=== PATIENT | male | born 1965 | race Caucasian/White ===

== ENCOUNTER 2022-08-06 13:36 | Outpatient (OUT) | payer OTHER, SELFPAY ==
--- NOTE | 2022-08-06 16:09 | MISC_ITS ---
PROCEDURE DATE: ??08/06/2022 PROCEDURE:? Bilateral glenohumeral joint injection. PREOPERATIVE DIAGNOSIS:? Bilateral shoulder pain secondary to osteoarthrosis. POSTOPERATIVE DIAGNOSIS:? Bilateral shoulder pain secondary to osteoarthrosis. SOLUTION USED FOR INJECTION:? 2 mL of 2% lidocaine, 2 mL of 0.25% Marcaine and 20 mg of Kenalog, total of 10 mL and 3 mL was used for the injection at each site. IMMEDIATE COMPLICATIONS:? None. PROCEDURE:? After informed consent was obtained from the patient, placed in the supine position.? Skin overlying the area was prepped with alcohol.? A 25 gauge 1 ? inch needle was inserted into the right glenohumeral joint.? After encountering the same, we injected 2 mL of solution.? This was repeated in a similar fashion on the contralateral side.? Throughout the procedure, no indication of intravascular or intraneural needle tip placement or injection.? Patient reports reduction of pain symptoms post procedurally. MELVIN
== END 2022-08-06 13:37 ==
PROVIDERS: PCP Internal Medicine; Visit Provider Anesthesiology Pain Medicine
DX: M19.012 Primary osteoarthritis, left shoulder (principal); M19.011 Primary osteoarthritis, right shoulder
CPT/HCPCS: 20610

== ENCOUNTER 2022-11-05 14:45 | Outpatient (OUT) | payer OTHER, SELFPAY ==
--- NOTE | 2022-11-05 | CONS_ITS ---
CONSULTATION DATE: ??11/05/2022 TO:? Dr. Torres CHIEF COMPLAINT:? Includes bilateral knee pain.? HISTORY:? Patient presented today complaining of 5-7/10 pain in his knees bilaterally.? He reports the pain as being quite sharp, increased with any kind of weight bearing maneuvers.? Kneeling is also quite painful, and transitioning from a kneeling to sitting position is quite uncomfortable.? Denies any change in bowel and bladder habits or new sensorimotor changes in the lower extremities.? He has been using ibuprofen 800 mg daily p.r.n. as well as Celebrex 100 mg daily.? He reports the ibuprofen seems to help him a lot more than the Celebrex.? Other medications include Hemet 5 mg t.i.d.? He reports this does improve his quality of life, level of functioning and sleep pattern.? He denies any side effects.? He does not use one t.i.d. on a regular basis.? He reports at times he uses Hemet daily or even b.i.d.? He does appear to be using Hemet appropriately, without any acceleration.? He reports he has been unresponsive to Zanaflex recently. EXAM:? His examination is notable for patient having no clinical radiculopathy or myelopathy of the bilateral lower extremities.? He has edema of both knee joints.? He has more crepitus of the right knee joint than the left knee joint.? He has surrounding soft tissue tenderness involving the gastrocnemius and hamstring muscles bilaterally.? He had no appreciable J-sign.? He had no signs consistent with ligamental laxity.? He did appear to have point tenderness overlying the lateral meniscus on his right knee.? IMPRESSION:? Our impression is patient appears to have chronic pain secondary to bilateral knee joint pain clinically from osteoporosis.? At this point, he does not want to consider any type of intervention for his knee joints and has decided against proceeding with any kind of imaging study, including x-rays of his knees and even MRIs of his knee joints. RECOMMENDATIONS:? We, therefore, will discontinue his Zanaflex and trial him on baclofen 10 mg pills, half a pill to one pill b.i.d.? I have placed him on ibuprofen 800 mg t.i.d. p.r.n. and to discontinue Celebrex. ?Will see the patient back in the office in three months? time or sooner if needed.? As part of providing excellent, safe, comprehensive care, the following was completed at our patient's visit: 1. A medication reconciliation and review to ensure accurate knowledge of current/active medications, including asking our patients to inform us about any iqjw-fgi-nitkzni medications or herbal remedies/nutritional supplements/alternative remedies. 2. A review to specifically ensure our patients have had annual screening for: elevated body mass index (BMI, see intake chart for exact total), tobacco use, screening for depression, and screening for unhealthy alcohol use.? When screening is concerning, patients are provided with education and the specific recommendation to discuss the concerning health issue and treatment options with their primary care provider. MELVIN
== END 2022-11-05 14:46 | disposition home or self-care (01) ==
PROVIDERS: PCP Internal Medicine; Visit Provider Anesthesiology Pain Medicine
DX: M25.561 Pain in right knee (principal); M25.562 Pain in left knee; G89.29 Other chronic pain; M81.0 Age-related osteoporosis without current pathological fracture
CPT/HCPCS: G0463

== ENCOUNTER 2023-01-30 08:46 | Outpatient (OUT) | payer OTHER, SELFPAY ==
--- NOTE | 2023-01-30 09:29 | P.CN_ITS ---
Consult Note: HPI Data of Consult Patient: known to practice within the last 3 years Requesting Physician: Nancy Horan NP Primary Care Provider: Tevin Torres DO Consult Narrative Reason for consult: f/u Narrative: Trey Hernandez a pleasant 57 year old male presents for evaluation and management of chronic pain. Today pain is in bilateral hips and radiates to groin, pain is 7-8/10. Patient would like to discuss medications and injection therapy. Patient ran out of his norco last and has noticed increase in pain and decrease in functional ability as a result. cc:: CC: Nancy Horan NP Review of Systems ROS Status of ROS 10 or more systems reviewed and unremarkable except as noted in history and below Musculoskeletal Reports: back pain and joint pain [facility] Medical History (Updated 01/30/23 @ 09:30 by Nancy Horan NP) Back pain of thoracolumbar region ?M54.50 - Low back pain, unspecified (ICD-10) ?M54.6 - Pain in thoracic spine (ICD-10) Meds Home Medications and Allergies Home Medications Medication Instructions Recorded Confirmed Type hydrocodone 5 mg-acetaminophen 325 1 tab PO TID PRN pain #90 tabs 11/05/22 Rx mg tablet albuterol 90 mcg/actuation aerosol mcg inhalation 11/07/22 History inhaler amlodipine 5 mg tablet 5 mg PO DAILY 11/07/22 11/07/22 History atorvastatin 20 mg tablet 20 mg PO DAILY 11/07/22 11/07/22 History baclofen 10 mg tablet 10 mg PO TID PRN muscle spasm 11/07/22 11/07/22 History ibuprofen 800 mg tablet 800 mg PO TID-QID PRN pain 11/07/22 11/07/22 History mometasone-formoterol HFA 200 2 puff inhalation BID 11/07/22 11/07/22 History mcg-5 mcg/actuation aerosol inhaler (Dulera) pregabalin 75 mg capsule (Lyrica) 75 mg PO BID 11/07/22 11/07/22 History tamsulosin 0.4 mg capsule 0.4 mg PO DAILY 11/07/22 11/07/22 History pregabalin 75 mg capsule (Lyrica) 75 mg PO BID #180 caps 12/09/22 Rx hydrocodone 5 mg-acetaminophen 325 1 tab PO TID PRN pain #90 tabs 01/22/23 Rx mg tablet Exam Constitutional Documenting provider has reviewed patient's vital signs: yes Common normals: no apparent distress, oriented x3, healthy appearing, alert and well nourished General appearance: cooperative HENMT Common normals: normocephalic, hearing grossly normal bilaterally and moist oral mucous membranes Head and scalp: normocephalic Eye Common normals: PERRL Pupil: PERRL Neck & C-Spine Common normals: full ROM General: normal visual inspection Chest Common normals: inspection of chest normal Respiratory Common normals: normal respiratory effort, no retractions and no use of accessory muscles Back & Pelvis Thoracic spine/upper back: pain with ROM Lumbar spine/lower back: pain with ROM Extremity Right lower extremity: hip joint Left lower extremity: hip joint Other: positive internal and external rotation of bilateral hips pain wraps around to groin bilaterally Neuro Common normals: oriented x3, CN's II-XII intact bilaterally, moves all extremities, no focal motor deficits, no sensory deficits noted and deep tendon reflexes 2+ bilaterally Sensorium/orientation: alert Motor exam: strength 5/5 throughout and no movement abnormalities noted Psych Common normals: mental status grossly normal, thought process normal, cooperative, affect normal, speech normal and activity/motor behavior normal Speech: normal speech Thought process: normal thought process Results Additional Findings Additional findings: I have checked an [place] report on this patient today and there are no aberrancies noted in the prescribing history.?? A drug screen was completed and reviewed within the last year, and if there has not been a drug screen completed we ordered one today to monitor higher risk, state monitored pain medication use. As part of providing excellent, safe, comprehensive care, the following was completed at our patient's visit: 1. A medication reconciliation and review to ensure accurate knowledge of current/active medications, including asking our patients to inform us about any [id number] medications or herbal remedies/nutritional supple ments/alternative remedies. 2. A review to specifically ensure our patients have had annual screening for: elevated body mass index (BMI), tobacco use, screening for depression, and screening for unhealthy alcohol use. When screening is concerning, patients are provided with education and the specific recommendation to discuss the concerning health issue and treatment options with their primary care provider. Assessment and Plan Assessment and Plan (1) Hip osteoarthritis: (2) Chronic pain syndrome: (3) Chronic prescription opiate use: Assessment and Plan: I feel these medications are improving the patient's quality of life and allow them to tolerate activities of daily living as well as participate in recreational activity.? The patient does not report intolerable side effects. The patient is NOT opioid naive and non-pharmacologic and non-opioid treatment has failed to significantly relieve the patient's pain and improve functionality. The patient has a diagnosis that is related to a somatic or visceral pain etiology. ? ?? I reviewed with the patient the potential risks and side effects with the use of? opioid medications including but not limited to respiratory depression,? sedation, and even . I verified the patient has access to naloxone should? these effects occur. I advised the patient to avoid the use of any other? sedation substances including alcohol, THC, and benzodiazepines while? taking opioid medications due to the risk of compounding side effects and? detrimental outcomes. I reviewed the [employer]LECT[employer]CH[employer]ICIAN, pain treatment agreement, urine? drug screen, and opioid start talking forms. The patient was advised to let? their family know they had Naloxone in case they would need to administer? the medication.? ?? A drug screen was completed within the last year, and no aberrancies were noted regarding their use of controlled substances. The patient understands they are subject to the terms and conditions of the pain contract that they have signed. ? ?? I have checked an [place] report on this patient today and there are no aberrancies noted in the prescribing history.? Plan xrays of bialteral hips bilateral intra-artciular hip injections under fluoroscopy with Dr Sawyer continue current medications f/u 2 weeks after injections
== END 2023-01-30 08:47 | disposition home or self-care (01) ==
LOC: PM 08:46
PROVIDERS: PCP Internal Medicine; Visit Provider Nurse Practitioner
DX: M16.9 Osteoarthritis of hip, unspecified (principal); G89.4 Chronic pain syndrome; Z79.891 Long term (current) use of opiate analgesic
CPT/HCPCS: G0463

== ENCOUNTER 2023-05-07 07:49 | Outpatient (OUT) | payer OTHER, SELFPAY ==
--- OUTSIDE RECORDS SUMMARY | 2023-05-07 07:52 | XMS_ITS | CCD ---
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 Start: 04-01-2023 Alcohol intake [facility] (finding) [facility] Start: 04-20-2020 End: 05-22-2020 History of Social function [facility] How often to you hav e a drink containing alcohol? Never [facility] Average Number of Drinks [facility] Start: 1965 Sex Assigned At Not on file [facility] Medical Equipment Procedure Code Equipment Code Equipment Origin al Text Equipment Identifier Dates Implant Bio Tiss Med Bvn At Dlv Dev Bioinductive Impl - Sna - [id number] Start: 02-14-2021 [place] [employer] As cp Dlv - Sna - [id number] Start: 02-14-2021 Clinical Notes 05-16-2021 to 02-14-2023 Note Date & Type Note Facility 02-14-2023 Evaluation note Encounter Date Diagnosis Assessment Notes Jan, Hyperprolactinemia (ICD-10 - E22.1) [facility] Other 11-01-2023 Evaluation note* Encounter Date Diagnosis Assessment Notes Treatment Notes Treatment Clinical Notes Jan, Primary hypertension (ICD-10 - I10) This patient is instructed to consume a healthy, low-fat, low-salt diet. They are also encouraged to continue exercise to achieve/maintain a normal BMI. Jan, Wellness examination (ICD-10 - Z00.00) Healthy diet and exercise. Reviewed age-appropriate preventive testing recommended. Jan, Mild intermittent asthma without complication (ICD-10 - J45.20) Symptoms controlled, no ER visits for AE Jan, Elevated cholesterol (ICD-10 - E78.00) Instructed on diet and exercise with continued statin therapy.Discussed the beneficial effects of lowering cholesterol in reducing the risk for cerebrovascular and cardiovascular disease. Jan, Gastroesophageal reflux disease with esophagitis without hemorrhage (ICD-10 - K21.00) Diet instructions: Smaller portions, avoid eating and laying flat, avoid eating or drinking prior to bedtime. Weight loss. Jan, ANGELA (generalized anxiety disorder) (ICD-10 - F41.1) Symptoms tolerable Remains very active. Encourage to continue healthy diet and exercise No change in medical therapy Jan, PHIL (obstructive sleep apnea) (ICD-10 - G47.33) This patient is aware of the benefits associated with PHIL: With continued use, the patient reduces the risk for VA, CVA, HTN, cardiac dysrhythmias and sudden cardiac deaths.The patient is also aware of the association between PHIL and morning headaches, daytime somnolence, fatigue and obesity Noncompliant Jan, Lumbar spondylosis (ICD-10 - M47.816) The patient is instructed to avoid bending, twisting or lifting. They are to use intermittent heat and ice as needed. They may schedule a massage or gentle manipulation. They may safely use Tylenol as needed. \ f/u pain clinic Jan, Overweight (ICD-10 - E66.3) This patient has been instructed on a low-fat, high-fiber diet. They are instructed to reduce calories, portion sizes and snacks. It is recommended that they exercise for 30 minutes, 3-5 times weekly. Jan, Prolactinoma (ICD-10 - D35.2) Denies headaches or visual field loss. Check Prolactin level Jan, Screening PSA (prostate specific antigen) (ICD-10 - Z12.5) Yearly RENAN and PSA [facility] Other 05-11-2023 NotePROCEDURE: XR SHOULDER RT 2V or > HISTORY: Pain of right shoulder region COMPARISON: None. FINDINGS: BONES:No fracture, acute abnormality, or significant arthropathy. SOFT TISSUES:No visible soft tissue swelling. EFFUSION:None visible. OTHER: Negative. IMPRESSION: 1. No acute bone abnormality or significant degenerative joint disease. 2. Consider MRI for evaluation of possible soft tissue injury if symptoms persist. Electronically authenticated by: LIBBY ARMENTA Date: 2022-07-11 10:26[facility]04-27-2023 Evaluation note* Encounter Date Diagnosis Assessment Notes Treatment Notes Treatment Clinical Notes Jun, Primary hypertension (ICD-10 - I10) This patient is instructed to consume a healthy, low-fat, low-salt diet. They are also encouraged to continue exercise to achieve/maintain a normal BMI. Jun, Mild intermittent asthma without complication (ICD-10 - J45.20) Keep active. Initiate treatment towards environmental allergens. - start Nina and Flonase Continue SHILOH as needed. Jun, Seasonal allergic rhinitis due to pollen (ICD-10 - J30.1) Kenalog, Nina and Flonase to lessen symptoms related to environmental allergens Jun, Pleurodynia (ICD-10 - R07.81) REassure, since his symptoms are more typical of chest wall, pleurisy rather than angina. Reviewed typical symptoms of angina/CHF and instructed to seek evaluation if symptoms develop. d/c Motrin and start Celebrex Jun, Benign prostatic hyperplasia with lower urinary tract symptoms (ICD-10 - N40.1) Continue Flomax for now. Instructed to move dose to later in the daytime. Avoid fluids and Caffiene late in daytime. Jun, Nocturia (ICD-10 - R35.1) Jun, Lumbar spondylosis (ICD-10 - M47.816) The patient is instructed to avoid bending, twisting or lifting. They are to use intermittent heat and ice as needed. They may schedule a massage or gentle manipulation. They may safely use Tylenol as needed. F/U pain clinic Trial of Celebrex Jun, Allergic dermatitis due to poison jackie (ICD-10 - L23.7) Topical steroids, cool compresses should suffice Jun, Overweight (BMI 25.0-29.9) (ICD-10 - E66.3) I have instructed this patient to follow a low calorie, high fiber diet along with exercise. They are aware of the comorbid conditions associated with excessive weight: Diabetes, HTN, Hyperlipidemia, CAD and arthritis. [facility] Other 04-17-2023 Evaluation note* Encounter Date Diagnosis Assessment Notes Treatment Notes Treatment Clinical Notes Jun, Allergic contact dermatitis due to plants, except food (ICD-10 - L23.7) Cool compresses, Nina, Benadryl and Prednisone. Avoid scratching [facility] Other 04-03-2023 Evaluation note* Encounter Date Diagnosis Assessment Notes Treatment Notes Treatment Clinical Notes Jun, Acute bronchitis due to other specified organisms (ICD-10 - J20.8) Instructed to use Robitussin or Mucinex for cough, saline or Flonase NS for congestion, Tylenol for pain and fever. Jun, Primary hypertension (ICD-10 - I10) Avoid decongestants w/ due to elevate BP [facility] Other 03-28-2023 NoteCONSULTATION PROCEDURE DATE: 05/28/2022 IN OFFICE PROCEDURE PROCEDURE: Left glenohumeral joint injection. PREOPERATIVE DIAGNOSIS: Pain secondary to left shoulder joint pain. POSTOPERATIVE DIAGNOSIS: Pain secondary to left shoulder joint pain. DIAGNOSIS CODE: M25.512 SOLUTION USED FOR INJECTION: 2 mL of 2% lidocaine, 2 mL of 0.25% Marcaine, Kenalog 40 mg, total of 3 mL and 1 mL was use for the injection at the sites. IMMEDIATE COMPLICATION: None. PROCEDURE: After informed consent was obtained from the patient, placed in the sitting position. Skin overlying the area was prepped with alcohol. A 25 gauge, 1.5 inch needle was inserted and directed towards the left glenohumeral joint from a posterolateral approach. No indication of intravascular or intraneural needle tip placement. 1 mL of solution was injected. Post-op it was removed. Patient reports dramatic reduction in left shoulder pain with increased range of motion compared to pre-injection status. Scheduled to return to the office in one month's time or sooner if needed. CC: Tevin Torres D.O.[facility]03-16-2023 NoteCONSULTATION CONSULTATION DATE: 05/16/2022 HISTORY: This is a 56-year-old gentleman who returns to the clinic for a three month follow up for his chronic lower back pain. He was last seen 02/28/2022 which, at that time, his back pain was maintaining, no worse, but he had left shoulder pain. He did have pending left shoulder surgery, but that has been cancelled due to cost and lack of efficient insurance coverage. Medications include Lyrica 75 mg b.i.d., Lyford 5/325 b.i.d. and Zanaflex 4 mg b.i.d. He does take ibuprofen as needed. He is inquiring about a left shoulder injection today to help with the pain. In regards to his back, last procedure was done approximately one year, which was a repeat bilateral RFA of L2, L3 and L4 with good result. Activities that aggravate his pain are housework, lifting, prolonged standing, walking and pulling. He does use heat and does stretches, which do improve his pain. Patient's REVIEW OF SYSTEMS / PAST MEDICAL HISTORY / ALLERGIES and IMAGES have been reviewed and noted on the chart. PHYSICAL EXAM: VITAL SIGNS: Blood pressure is 147/93. Heart rate is 69. Temperature is 98.2. He is 5'11 , weighs 88 kg. GENERAL IMPRESSION: Pleasant, appropriate, in no acute distress. FOCUSED EXAM - BACK: Range of motion is functional in lateral rotation and flexion/extension. Paravertebral muscles are non-spasmodic. Mild spinal axial pain noted to deep compression along the L4-L5 facets, left greater than right. No radiating pain below the knee. MUSCULOSKELETAL: Motor is intact, bilateral lower extremities, 5/5. Left upper extremity motor is 4/5 with decreased range of motion to his left shoulder. Decreased lateral raises with decreased adduction but intact abduction. Crepitus palpated and point tenderness along the glenohumeral joint. NEUROLOGICAL: Patchy hypoesthesia noted to bilateral lower extremities and the left arm. DIAGNOSIS: Chronic pain syndrome, chronic lower back pain and left shoulder pain. PLAN: We will increase his Lyford and refill it at 5/325 t.i.d. and Lyrica 75 mg b.i.d. We will preauthorize with his insurance for a left shoulder Kenalog and Marcaine glenohumeral joint injection. Upon authorization, he will be brought back to the clinic, at that time. Patient agrees with this plan.[facility] [id number] NoteCONSULTATION CONSULTATION DATE: 02/28/2022 HISTORY OF PRESENT ILLNESS: This is a 56-year-old gentleman who returns to the clinic for a three month follow up for his chronic neck, shoulder and back pain. Primary area of pain today is his left shoulder. He has been under the care of Dr. Murphy who has reduced the bone spurs in his left shoulder. Since that time, he fell and landed on his shoulder, resulting in multiple tears throughout his shoulder. He is under discussion with Dr. Murphy at this time for a shoulder repair, but due to finances, it is on hold. He has just slight lower back and neck pain today, but he states it is manageable. He rates his pain 6/10 today, primarily in his shoulder. It is aggravated by lifting, raising arms, pushing, pulling, standing and walking. He does use heat and ice which are beneficial. Medications include Lyford 5/325 b.i.d., Zanaflex 4 mg b.i.d., Lyrica 75 mg b.i.d. and CBD gummies. Patient's REVIEW OF SYSTEMS / PAST MEDICAL HISTORY / ALLERGIES and IMAGES have been reviewed and noted in the chart. PHYSICAL EXAM: VITAL SIGNS: Blood pressure is 120/77. Heart rate is 65. Temperature is 97.5. He is 5'11 , weighs 85 kg. GENERAL IMPRESSION: Pleasant, appropriate, in no acute distress. FOCUSED EXAM - MUSCULOSKELETAL: Bilateral upper extremities motor is intact; right side 5/5, left 4/5. Left shoulder has decreased range of motion in lateral raises, adduction and abduction. Anterior/posterior tenderness upon compression, specifically to the glenohumeral joint. No crepitus or edema noted. BACK: Range of motion is functional in lateral rotation and flexion/extension. Mild reproduction of spinal axial pain upon the lower lumbar facets of L4-L5 bilaterally. Fabrice's point is non-tender with negative FABERs and compression test. NEUROLOGICAL: Patchy hypoesthesia noted to left arm and to left leg diffusely. Reflexes are intact; 2/2 to brachioradialis and to left patella. DIAGNOSIS: Chronic lower back pain, left shoulder pain. PLAN: The patient is considering having a consult with the [employer] [facility] regarding his shoulder surgery. We will refill and maintain his Lyford 5/325 b.i.d. He will Zanaflex and Lyrica at the set dose and frequency. We will continue to see him in three months' time for medication management, and patient is in agreement.[facility] [id number] NoteCONSULTATION CONSULTATION DATE: 11/21/2021 HISTORY OF PRESENT ILLNESS: This is a 56-year-old gentleman returning to the clinic for a follow up of his right sided cervical RFA that was completed in August. The patient had the procedure done prior to leaving for a two [place] trip [place]. Today, he reports his pain a 4/10 at rest, increases to 7/10 with activity. He describes it as zapping, sharp and burning to the right side only. Range of motion has improved in lateral rotation and flexion/extension. He is feels as though his muscles are not as tight, but he has two areas that are more bothersome. Current medications include Zanaflex 4 mg b.i.d., Lyrica 75 mg b.i.d., Lyford 5/325 b.i.d. and ibuprofen 800 mg b.i.d. Activities such as neck rotation, lifting and physical activity aggravate his pain. Sitting and stretching decrease his pain. Patient's REVIEW OF SYSTEMS / PAST MEDICAL HISTORY / ALLERGIES and IMAGES have been reviewed and they are noted on the chart. PHYSICAL EXAM: VITAL SIGNS: Blood pressure is 133/84. Heart rate is 57. Temperature is 97.5. He is 5'11 , weighs 84.6 kg. GENERAL IMPRESSION: Pleasant, appropriate, no acute distress. FOCUSED EXAM - NECK: Range of motion is intact and functional in lateral rotation and flexion/extension. Trachea is midline. Splenius capitis muscles are non-spasmodic. Trapezius muscles with trigger points identified to the right in two locations. Positive jump response. No spinal axial pain to compression indicative of successful RFA. MUSCULOSKELETAL: Motor is intact upper and lower extremities 5/5. No vasomotor weakness noted. NEUROLOGICAL: Patchy hypoesthesia to right upper extremity along the C6 and C7 dermatome. +1 brachioradialis and triceps reflexes to the right. DIAGNOSIS: Cervical spasms, cervical neuritis, cervical spondylosis. PLAN: Patient will receive right sided cervical trigger point injections in two locations, which he does consent to. He is to continue current medication with no changes in dose or frequency. A refill for his Zanaflex 4 mg b.i.d. and Motrin 800 mg b.i.d. will be sent to his pharmacy. I did recommend home cervical traction to be used on his neck. We will see him in three months' time unless otherwise indicated. Patient agrees with this plan.[facility] [id number] NoteCONSULTATION PROCEDURE DATE: 11/21/2021 PREOPERATIVE DIAGNOSIS: Right cervical trapezius spasms. POSTOPERATIVE DIAGNOSIS: Right cervical trapezius spasms. PROCEDURE: Right cervical trigger point injections x2. Subsequent to obtaining informed consent, the patient was placed in an upright sitting neck neutral position. Alcohol prep was used to sterilize the site. A 27 gauge needle with 0.125% Marcaine and 40 mg of Kenalog was used in the two locations. The needle was placed to rest inside the trigger zone. Negative heme. Medication was injected in a slow, fan-like pattern. Patient tolerated the procedure well with no overt complications.[facility] [id number] NoteCONSULTATION CONSULTATION DATE: 08/16/2021 HISTORY OF PRESENT ILLNESS: This is a 55-year-old gentleman, returning to the clinic status post right sided RFA of C3, C4 and C5, C6 completed on 07/10/2021. The patient stated shortly after the procedure he experienced increased burning and allodynia and, therefore, wanted to hold off on the left side. Today, he is reporting approximately 60-70% relief and patient understands he is still in the recovery phase. He is leaving in one week for [place] for a two month time period. Upon patient's return, he will decide if he would like to proceed with the left side RFA. His pain level is 2/10 today and describes it as dull. He has been using Biofreeze and Voltaren gel which seem helpful as well. Current medications include Zanaflex 4 mg b.i.d., Lyrica 75 mg b.i.d. and Lyford 5/325 b.i.d. Activities that aggravate his pain are lifting, flexion of his neck, ADLs, changes in the weather and lateral rotation. Patient's REVIEW OF SYSTEMS / PAST MEDICAL HISTORY / ALLERGIES and IMAGES have been reviewed and noted in the chart. PHYSICAL EXAM: VITAL SIGNS: Blood pressure is 142/94. Heart rate is 66. Temperature is 97.8. He is 5'11 , weighs 85.5 kg. GENERAL APPEARANCE: Pleasant, appropriate, in no acute distress. FOCUSED EXAM - NECK: Range of motion is functional but slightly guarded to the left during lateral rotation. Flexion and extension are intact. Cervical muscles are non-spasmodic with no trigger points identified. Mild reproduction of spinal axial pain to direct compression of the cervical facets of C3, C4 and C5, C6 to the left. MUSCULOSKELETAL: Bilateral upper extremities are intact, 4/5. NEUROLOGICAL: +2 bilateral brachioradialis reflexes. No upper extremity polyneuropathy. Patchy hypoesthesia noted to left lower extremity along the L5 dermatome. IMPRESSION: Cervical spondylosis, cervical degenerative disc, cervicalgia and lumbar radiculitis. PLAN: Due to the fact the patient is leaving for [place] for a two month period, his Lyford for a 30 day supply will be increased to 5/325 q.i.d. to keep the same dose and frequency while he is out of the country. Education was given on continuing stretches and Biofreeze regimen. He was encouraged to start magnesium glycinate 400 mg q.h.s. in addition to his multivitamin. Patient agrees with the plan of care and will follow up in the clinic in three months' time. [facility] Signed and Approved by: ADRIANE ROUSSEAU . 08/29/2021 16:23:00[facility]03-16-2022 NoteChief Complaint consultation for foreign body HPI Staff 55 year old male presents on consultation from Dr. Torres for foreign body left index finger. Reportshe received wood splinter on 05/12. Pain, erythema and edema started day afterwards. Prescribed Amoxil 875mg BID x 7 days yesterday. Today erythema and edema have resolved. Continues with mild tenderness. History of Present Illness 55 yo male s/p splinter to left index finger, happened 4 days ago, small piece broke off, rest still in finger, intermittent pain and drainage, on antibiotics since yesterday. Review of Systems PHQ Score Initial Depression Screen Score: 0 ROS - Provider Constitutional: no fever, no sweats, no weight loss. Eyes: no glasses, no blurred vision, no visual loss. ENMT: no dentures, no hoarseness, no swallowing difficulties, no hearing loss, no ear infection(s),no nose bleeds. Cardiovascular: normal blood pressure, no chest pain, regular heartbeat, no heart murmur. Respiratory: no shortness of breath, no cough, no asthma, no wheezing. Gastrointestinal: no nausea, no vomiting, no diarrhea, no constipation, no blood in stool, no change in bowel habits, no abdominal pain, no hepatitis. Genitourinary: no kidney stones, no urine infection, no dysuria. Musculoskeletal: no pain, no weakness. Skin: no changing moles, no rash, no skin lumps. Neurologic: no seizures, no epilepsy, no headache. Psychiatric: no emotional or psychiatric problem. Heme/Lymph: no bleeding problems, no anemia, no blood clots, no transfusions. Allergy/Immunologic: no swollen lymph nodes/glands, no IV drug abuse. Other: Additional ROS info: Except as noted in the above Review of Systems and in the History of Present Illness, all other systems have been reviewed and are negative or noncontributory. Physical Exam Vitals & Measurements T: 36.6 ?C(Temporal Artery) HR: 72(Peripheral) RR: 16 BP: 126/78 HT: 182.9 cm HT: 182.88 cm WT: 89.1 kg WT: 89.1 kg BMI: 26.64 skin: left index finger with minimal induration distally, 3 mm open area medially, minimal drainage; no visible foreign body. Assessment/Plan 1. Foreign body of finger, left, superficial, infected (S60.459A: Superficial foreign body of unspecified finger, initial encounter) splinter removed under local anesthesia after prepping finger; tolerated well, ebl < 1 ml; soak finger in soapy water bid until scabs over; complete course of antibiotics, call with problems/questions. Local infection of the skin and subcutaneous tissue, unspecified (L08.9: Local infection of the skin and subcutaneous tissue, unspecified) Follow-up No qualifying data available Problem List/Past Medical History Ongoing Asthma BMI 26.0-26.9,adult BPH associated with nocturia Foreign body of finger, left, superficial, infected ANGELA (generalized anxiety disorder) HTN (hypertension) Hyperlipidemia Irritable bowel syndrome with alternating bowel habits Lumbar spondylosis Major depressive disorder PHIL (obstructive sleep apnea) Pituitary microadenoma Historical No qualifying data Procedure/Surgical History Arthroscopy of shoulder (02/14/2021), Colonoscopy (2017), EGD - Esophagogastroduodenoscopy (2006), Cholecystectomy, History of hip surgery, Lumbar spinal fusion, Partial substernal thyroidectomy. Medications albuterol HFA 90 mcg/inh MDI, 2 puff(s), Inhalation, q4hr, PRN alprazolam 0.25 mg Tab, 0.25 mg= 1 tab(s), Oral, q8hr, PRN amLODIPine 10 mg Tab, 10 mg= 1 tab(s), Oral, Daily atorvastatin 80 mg Tab, 80 mg= 1 tab(s), Oral, Daily cabergoline 0.5 mg Tab, 0.5 mg= 1 tab(s), Oral, 2x/Wk Flomax 0.4 mg Cap, 0.4 mg= 1 cap(s), Oral, Daily Lyrica 75 mg Cap, 75 mg= 1 cap(s), Oral, BID Lyford 5/325 Tab, 1 tab(s), Oral, BID Singulair 10 mg Tab, 10 mg= 1 tab(s), Oral, Daily Allergies No Known Allergies No Known Medication Allergies Social History Alcohol - Denies Alcohol Use, 05/16/2021 Substance Abuse - Denies Substance Abuse, 05/16/2021 Tobacco Never (less than 100 in lifetime) Tobacco Use:. Never Smokeless Tobacco Use:., 05/16/2021 Family History Brain tumor: Brother. Diabetes mellitus type 2: Father. Stroke: Father. Immunizations Vaccine Date Status Comments influenza virus vaccine, inactivated - Not Given [facility]usesSam[facility] CenterComment on above:Result Comment: Electronically Signed By: Luis Miguel AZEVEDO MD\Date and Time Signed: 05/16/21 17:23 EDTHistory general Narrative - Reported* Type Description Date Medical History chronic JENKINS Medical History lumbar spondylosis Medical History BPH Medical History hypertension Medical History hyperlipedemia Medical History diverticulosis Medical History depression Medical History anxiety Medical History PHIL Medical History benign thyroid tumor Medical History pituitary prolactinoma Surgical History cholecystecomy Surgical History EGD Surgical History colonoscopy Surgical History right thyroidectomy Surgical History rt shoulder rotator cuff 4 Surgical History RFA Hospitalization History CHEST PAIN 2010 [facility] Other InstructionsNot on filedocumented in this encounter [facility] Summary Purpose Family History No Family History Records FoundNo Family History Records FoundNo Family History Records FoundNo Family History Records FoundNo Family History Records Found Advance Directives No Advanced Directives Records FoundNo Advanced Directives Records FoundNo Advanced Directives Records FoundNo Advanced Directives Records FoundNo Advanced Directives Records Found Additional Source Comments (unrecognized sect ion and content) No Status Records FoundNo Status Records FoundNo Status Records FoundNo Status Records FoundNo Status Records Found INFORMATION SOURCE (unrecogn ized section and content) DATE CREATED AUTHOR 08/26/2017 [facility] DATE CREATED AUTHOR AUTHOR'S ORGANIZ ATION 08/26/2017 [facility] DATE CREATED AUTHOR AUTHOR'S ORGANIZ ATION 05/17/2021 [facility] [facility] DATE CREATED AUTHOR AUTHOR'S ORGANIZ ATION 07/13/2022 [facility] DATE CREATED AUTHOR AUTHOR'S ORGANIZ ATION 04/06/2023 [facility] REASON FOR VISIT (unrecogniz ed section and content) Reason Comments Med Refill Care Teams (unrecognized sec tion and content) Operating Room Aide Relationship Specialty Start Date End Date Tevin Torres DO [address] [place] [address] PCP - General Internal Medicine 05/09/20 FOR RECORDS PERTAINING TO PATIENTS WHO ARE OR HAVE BEEN ENROLLED IN A CHEMICAL DEPENDENCY/SUBSTANCEABUSE PROGRAM, SOME INFORMATION MAY BE OMITTED. This clinical summary was aggregated from multiple sources. Caution should be exercised in using it in the provision of clinical care. This summary normalizes information from multiple sources, and as a consequence, information in this document may materially change the coding, format and clinical context of patient data. In addition, data may be omitted in some cases. CLINICAL DECISIONS SHOULD BE BASED ON THE PRIMARY CLINICAL RECORDS. [facility]. provides no warranty or guarantee of the accuracy or completeness of information in this document.
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
== END 2023-05-07 07:50 | disposition home or self-care (01) ==
PROVIDERS: PCP Internal Medicine; Visit Provider Nurse Practitioner
DX: M16.9 Osteoarthritis of hip, unspecified (principal); G89.4 Chronic pain syndrome; Z79.891 Long term (current) use of opiate analgesic; M47.812 Spondylosis without myelopathy or radiculopathy, cervical region; M79.18 Myalgia, other site
CPT/HCPCS: G0463

== ENCOUNTER 2023-05-19 12:04 | Outpatient (REF) | payer OTHER, SELFPAY ==
--- OUTSIDE RECORDS SUMMARY | 2023-05-19 12:19 | XMS_ITS | CCD ---
Author Name Unknown Address [address] [place] [address] Organization [facility] Care Team Providers Care Reel Cart Operator Name Role Phone Harjit Aldrich Unavailable Unavailable [...] [employer] Unavailable ROB ., DR CODY Ricketts [...] Facility (5 sources) Morphine Drug Allergy vomiting [facility] Other Medications Current Medications Medication Drug Class(es) [...] needed Orally every 6 hrs PRN Active [id number] 200 actuat albuterol 0.09 mg/actuat metered dose [...] 1 02/04/2022 Active take 1 capsule by [facility] every twenty-four hours Tamsulosin HCl 0.4 MG [...] Chema Obrien on 04/01/2023 1:46 PM Normal [facility] Ambulatory Visit Summaryon 0 05-16-2021 Ambulatory Visit Summary TREY HERNANDEZ :1965 Visit Date:05/16/2021 Ambulatory Visit Instructions Your Care Team Attending Physician - Luis Miguel AZEVEDO MD Primary Care Physician - TEVIN TORRES DO Referring Physician - TEVIN TORRES DO This Is Your Medications List acetaminophen-hydrocodone (Markesan 5/325 Tab) albuterol (albuterol HFA 90 mcg/inh [...] What How Much When Instructions Unchanged acetaminophen-hydrocodone (Markesan 5/ 325 Tab) 1 Tablets By Mouth [...] PHIL (obstructive sleep apnea) Pituitary microadenoma Normal [facility] Physician Referralon 022 Physician Referral [id number]:[id number] Normal [facility] OPERATIVE REPORTon 7 OPERATIVE REPORT NAME: LENNY HERNANDEZ#: [id number]: Harjit Aldrich, MDDATE OF SURGERY: 11/07/2016OPERATIVE REPORTPREOPERATIVE [...] to follow up in 2weeks and discharged home.[facility] NAME: LENNY HERNANDEZ#: [id number] [place] [address] ACCT: [id number]: 63OPERATIVE REPORTA successful air arthrogram was performed prior to administration ofmedication. JOSE WESTON/JESSY/[id number]: 11/07/2016 16:06:43 E/S: Harjit Aldrich, DO11/28/16 1546Signature on [facility] NAME: LENNY HERNANDEZ#: [id number] [place] [address] ACCT: [id number]: 63OPERATIVE REPORT Normal [facility] Vital Signs Date Time Vital Sign Value Performing Clinician Facility 01-01-2023 09:00-0400 Body height 182.88 cm Tevin Geostellar Other [facility] Other 01-01-2023 09:00-0400 Body mass index (BMI) [Ratio] 25.3 kg/m2 Tevin Ball Other [facility] Other 01-01-2023 09:00-0400 Body weight 84.64 kg Tevin Ball Other [facility] Other 01-01-2023 09:00-0400 Diastolic blood pressure 80 mm[Hg] Tevin Ball Other [facility] Other 01-01-2023 09:00-0400 Respiratory rate 12 /min Tevin Ball Other [facility] Other 01-01-2023 09:00-0400 Systolic blood pressure 139 mm[Hg] Tevin Ball Other [facility] Other 06-27-2022 11:00-0400 Body height 182.88 cm Tevin Ball Other [facility] Other 06-27-2022 11:00-0400 Body mass index (BMI) [Ratio] 25.66 kg/m2 Tevin Ball Other [facility] Other 06-27-2022 11:00-0400 Body weight 85.82 kg Tevin Ball Other [facility] Other 06-27-2022 11:00-0400 Diastolic blood pressure 86 mm[Hg] Tevin Ball Other [facility] Other 06-27-2022 11:00-0400 Respiratory rate 12 /min Tevin Ball Other [facility] Other 06-27-2022 11:00-0400 Systolic blood pressure 136 mm[Hg] Tevin Ball Other [facility] Other 06-17-2022 12:15-0400 Body height 182.88 cm Tevin Ball Other [facility] Other 06-17-2022 12:15-0400 Body mass index (BMI) [Ratio] 25.22 kg/m2 Tevin Ball Other [facility] Other 06-17-2022 12:15-0400 Body weight 84.37 kg Tevin Ball Other [facility] Other 06-17-2022 12:15-0400 Diastolic blood pressure 77 mm[Hg] Tevin Ball Other [facility] Other 06-17-2022 12:15-0400 Respiratory rate 12 /min Tevin Ball Other [facility] Other 06-17-2022 12:15-0400 Systolic blood pressure 116 mm[Hg] Tevin Ball Other [facility] Other Encounters Encounter Date Encounter Type Care Provider Facility Start: 05-05-2023 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 Phone: [facility] Start: 04-30-2023 Refill Ulises Schneider ner 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 PROFESSOR-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 Work Phone: [facility] Start: 04-01-2023 End: 04-02-2023 Emergency department patient visit ULISES GRAHAM [facility] Start: 02-14-2023 End: 02-14-2023 ambulatory Tevin Torres Other [facility] Other Start: 02-14-2023 Telephone encounter Tevin Torres [facility] Start: 01-01-2023 End: 01-01-2023 ambulatory Tevin Torres Other [facility] Other Start: 01-01-2023 Encounter for genera l adult medical examination without abnormal findings Tevin Torres [facility] Start: 01-01-2023 Periodic preventive med est patient 40-64yrs Tevin Torres [facility] Start: 07-11-2022 End: 07-12-2022 ambulatory LISSETT NEWTON . Facility: Start: 06-27-2022 End: 06-27-2022 ambulatory Tevin Torres Other [facility] Other Start: 06-27-2022 Office outpatient visit 25 minutes Tevin Torres [facility] Start: 06-17-2022 End: 06-17-2022 ambulatory Tevin Torres Other [facility] Other Start: 06-17-2022 Office outpatient visit 15 minutes Tevin Torres [facility] Start: 06-03-2022 End: 06-03-2022 ambulatory Tevin Torres Other [facility] Other Start: 06-03-2022 Office outpatient visit 15 [...] Faci lity:H1 Start: 11-07-2016 [facility] Start: 11-07-2016 Ambulatory Facility:9 131 Plan of Treatment Date Care Activity Detail Author Start: 04-01-2024 Tobacco Screening Tobacco Screening [facility] Start: 11-01-2022 COVID-19 Vaccine ( season) COVID-19 Vaccine ( season) [facility] Start: 11-01-2022 Influenza vaccination Influenza Vaccine [facility] Start: 03-26-2022 Adult BMI Screening Adult BMI Screening [facility] Start: 09-19-2013 Administration of varicella zoster vaccine Zoster (Shingles) Vaccine (1 of 2) [facility] Start: 09-19-1982 DTaP,Tdap and Td Vaccines (1 - Tdap) DTaP,Tdap and Td Vaccines (1 - Tdap) [facility] Start: 1975 Depression Screening Depression Screening [facility] Immunizations Immunization Date Immunization Notes Care Provider Fa surendra NEGATED: Highlighted row has not occurred!04-24-2015 influenza, seasonal, injectable Tevin Torres Other [facility] Other NEGATED: Highlighted row has not occurred!04-24-2015 pneumococcal polysaccharide vaccine, 23 valent Tevin Torres Other [facility] Other Payers Date Payer Category Payer Unknown [employer] [id number] 2021-Present [phone] [address] [place] [address] [id number] 2019 Unknown [id number] 2015 Unknown [id number] 1965 Unknown [id number] 1965 Unknown [id number] [id number] 1965 Unknown [id number] [id number] 1965 Unknown [id number] [id number] 1965 Unknown [id number] [id number] 1965 Unknown [id number] [id number] 1963 Unknown [id number] [id number] 1963 Unknown [id number] [id number] 1965 Unknown [id number] [id number] 1965 Unknown [id number] [id number] 1959 Unknown [id number] Unknown [id number] Social History Date Type Detail Facility Start: 04-20-2020 End: 05-22-2020 Sex Assigned At [address] [address] Other Start: 01-30-2024 Tobacco smoking stat [facility] Start: 04-01-2023 Tobacco use and exposure Smokeless tobacco [facility]-user [facility] Start: 04-01-2023 Alcohol intake Ex-drinker (finding) [facility] Start: 04-20-2020 End: 05-22-2020 History of Social function [facility] How often to you hav e a drink containing alcohol? Never [facility] Average Number of Drinks Not on file [facility] Start: 1965 Sex Assigned At Not on file [employer] [facility] Medical Equipment Procedure Code Equipment Code Equipment Origin al Text Equipment Identifier Dates Implant Bio Tiss Med Bvn At Dlv Dev Bioinductive Impl - Sna - [id number] Start: 02-14-2021 [place] [employer] As cp Dlv - Sna - [id number] Start: 02-14-2021 Clinical Notes 05-16-2021 to 02-14-2023 Note Date & Type Note Facility 02-14-2023 Evaluation note Encounter Date Diagnosis Assessment Notes Jan, Hyperprolactinemia (ICD-10 - E22.1) [facility] Other 11-01-2023 Evaluation note* Encounter Date Diagnosis [...] use, the patient reduces the risk for FL, CVA, HTN, cardiac dysrhythmias and sudden cardiac [...] (ICD-10 - Z12.5) Yearly RENAN and PSA [facility] Other 05-11-2023 NotePROCEDURE: XR SHOULDER RT 2V [...] Electronically authenticated by: LIBBY ARMENTA Date: 2022-07-11 10:26[facility]04-27-2023 Evaluation note* Encounter Date Diagnosis Assessment Notes [...] weight: Diabetes, HTN, Hyperlipidemia, CAD and arthritis. [facility] Other 04-17-2023 Evaluation note* Encounter Date Diagnosis Assessment Notes Treatment Notes Treatment Clinical Notes Jun, Allergic contact dermatitis due to plants, except food (ICD-10 - L23.7) Cool compresses, Nina, Benadryl and Prednisone. Avoid scratching [facility] Other 04-03-2023 Evaluation note* Encounter Date Diagnosis Assessment Notes Treatment Notes Treatment Clinical Notes Jun, Acute bronchitis due to other specified organisms (ICD-10 - J20.8) Instructed to use Robitussin or Mucinex for cough, saline or Flonase NS for congestion, Tylenol for pain and fever. Jun, Primary hypertension (ICD-10 - I10) Avoid decongestants w/ due to elevate BP [facility] Other 03-28-2023 NoteCONSULTATION PROCEDURE DATE: 05/28/2022 IN [...] or sooner if needed. CC: Tevin Torres D.O.[facility]03-16-2023 NoteCONSULTATION CONSULTATION DATE: 05/16/2022 HISTORY: This is [...] coverage. Medications include Lyrica 75 mg b.i.d., Markesan 5/325 b.i.d. and Zanaflex 4 mg b.i.d. [...] shoulder pain. PLAN: We will increase his Markesan and refill it at 5/325 t.i.d. and Lyrica 75 mg b.i.d. We will preauthorize with his insurance for a left shoulder Kenalog and Marcaine glenohumeral joint injection. Upon authorization, he will be brought back to the clinic, at that time. Patient agrees with this plan.[facility] [id number] NoteCONSULTATION CONSULTATION DATE: 02/28/2022 HISTORY OF PRESENT [...] and ice which are beneficial. Medications include Markesan 5/325 b.i.d., Zanaflex 4 mg b.i.d., Lyrica [...] is considering having a consult with the [facility] regarding his shoulder surgery. We will refill and maintain his Markesan 5/325 b.i.d. He will Zanaflex and Lyrica at the set dose and frequency. We will continue to see him in three months' time for medication management, and patient is in agreement.[facility] [id number] NoteCONSULTATION CONSULTATION DATE: 11/21/2021 HISTORY OF PRESENT ILLNESS: This is a 56-year-old gentleman returning to the clinic for a follow up of his right sided cervical RFA that was completed in August. The patient had the procedure done prior to leaving for a two month trip to [place]. Today, he reports his [...] 4 mg b.i.d., Lyrica 75 mg b.i.d., Markesan 5/325 b.i.d. and ibuprofen 800 mg b.i.d. [...] otherwise indicated. Patient agrees with this plan.[facility] [id number] NoteCONSULTATION PROCEDURE DATE: 11/21/2021 PREOPERATIVE DIAGNOSIS: Right [...] the procedure well with no overt complications.[facility] [id number] NoteCONSULTATION CONSULTATION DATE: 08/16/2021 HISTORY OF PRESENT [...] He is leaving in one week for [place] for a two month time period. Upon patient's return, he will decide if he would like to proceed with the left side RFA. His pain level is 2/10 today and describes it as dull. He has been using Biofreeze and Voltaren gel which seem helpful as well. Current medications include Zanaflex 4 mg b.i.d., Lyrica 75 mg b.i.d. and Markesan 5/325 b.i.d. Activities that aggravate his pain [...] Judy for a two month period, his Markesan for a 30 day supply will be [...] in the clinic in three months' time. [facility] Signed and Approved by: ADRIANE ROUSSEAU . 08/29/2021 16:23:00[facility]03-16-2022 NoteChief Complaint consultation for foreign body HPI [...] Cap, 75 mg= 1 cap(s), Oral, BID Markesan 5/325 Tab, 1 tab(s), Oral, BID Singulair [...] virus vaccine, inactivated - Not Given Patient RefusesSumma HealthComment on above:Result Comment: Electronically Signed By: Luis [...] History RFA Hospitalization History CHEST PAIN 2010 [facility] Other InstructionsNot on filedocumented in this encounter [facility] Summary Purpose Family History No Family [...] section and content) DATE CREATED AUTHOR 08/26/2017 [facility] DATE CREATED AUTHOR AUTHOR'S ORGANIZ ATION 08/26/2017 [facility] DATE CREATED AUTHOR AUTHOR'S ORGANIZ ATION 05/17/2021 [facility] DATE CREATED AUTHOR AUTHOR'S ORGANIZ ATION 07/13/2022 [facility] pital DATE CREATED AUTHOR AUTHOR'S ORGANIZ ATION 04/06/2023 [facility] REASON FOR VISIT (unrecogniz ed section and content) Reason Comments Med Refill Care Teams (unrecognized sec tion and content) Reel Cart Operator Relationship Specialty Start Date End Date Tevin Torres DO [address] [place] [address] PCP - General Internal Medicine 05/09/20 FOR [...] BE BASED ON THE PRIMARY CLINICAL RECORDS. [employer] [facility]. provides no warranty or guarantee of the accuracy or completeness of information in this document.
[2023-05-19 15:39] LABS: Internal Control Within Normal Limits; SARS-CoV-2 Ag NEGATIVE (NEGATIVE); Strep A Antigen Screen Negative
== END 2023-05-19 12:05 | disposition home or self-care (01) ==
LOC: LAB 12:04
PROVIDERS: PCP Internal Medicine; Visit Provider Internal Medicine
DX: J02.9 Acute pharyngitis, unspecified (principal); Z20.822 Contact with and (suspected) exposure to COVID-19
CPT/HCPCS: 87070; 87635; 87811; 87880

== ENCOUNTER 2023-08-06 08:26 | Outpatient (OUT) | payer OTHER, SELFPAY ==
--- NOTE | 2023-08-06 08:31 | PM.CN ---
Consult Note: HPI Data of Consult Patient: known to practice within the last 3 years Requesting Physician: Nancy Horan NP Primary Care Provider: Tevin Torres, Consult Narrative Reason for consult: f/u Narrative: Trey Hernandez a pleasant 57 year old male presents for evaluation and management of chronic pain, historically cervical spine, shoulders, and bilateral hips. Chronic pain unresponsive to PT and provided guided HEP greater than 6 weeks. Patient reports moderate relief from current medication regimen without side effects. Historically could not afford interventional therapy. Pain today 3/10 constant neck, bilateral shoulders increasing to 8/10 with twisting, pushing, pulling, activity, lifting, improved with heat, massage, and medications. Historically evaluated by Dr Murphy in the past for bilateral shoulders, is not interested in surgical intervention at this time. Previously found benefit to shoulder injections, greater than 50% improvement in pain and functional ability greater than 3 months. Patient would like to discuss repeating. cc:: CC: Nancy Horan NP Review of Systems ROS Status of ROS 10 or more systems reviewed and unremarkable except as noted in history and below Musculoskeletal Reports: neck pain and joint pain PFSH PFSH Medical History Back pain of thoracolumbar region ?M54.50 - Low back pain, unspecified (ICD-10) ?M54.6 - Pain in thoracic spine (ICD-10) Meds Home Medications and Allergies Home Medications ?Medication ?Instructions ?Recorded ?Confirmed ?Type hydrocodone 5 mg-acetaminophen 325 1 tab PO TID PRN pain #90 tabs 11/05/22 Rx mg tablet albuterol 90 mcg/actuation aerosol mcg inhalation 11/07/22 History inhaler amlodipine 5 mg tablet 5 mg PO DAILY 11/07/22 11/07/22 History atorvastatin 20 mg tablet 20 mg PO DAILY 11/07/22 11/07/22 History baclofen 10 mg tablet 10 mg PO TID PRN muscle spasm 11/07/22 11/07/22 History ibuprofen 800 mg tablet 800 mg PO TID-QID PRN pain 11/07/22 11/07/22 History mometasone-formoterol HFA 200 2 puff inhalation BID 11/07/22 11/07/22 History mcg-5 mcg/actuation aerosol inhaler (Dulera) pregabalin 75 mg capsule (Lyrica) 75 mg PO BID 11/07/22 11/07/22 History tamsulosin 0.4 mg capsule 0.4 mg PO DAILY 11/07/22 11/07/22 History pregabalin 75 mg capsule (Lyrica) 75 mg PO BID #180 caps 12/09/22 Rx hydrocodone 5 mg-acetaminophen 325 1 tab PO TID PRN pain #90 tabs 01/22/23 Rx mg tablet pregabalin 100 mg capsule (Lyrica) 100 mg PO BID #60 caps 02/20/23 Rx hydrocodone 5 mg-acetaminophen 325 1 tab PO TID PRN pain #90 tabs 04/09/23 Rx mg tablet baclofen 10 mg tablet 10 mg PO TID PRN muscle spasm #90 05/07/23 Rx tabs hydrocodone 5 mg-acetaminophen 325 1 tab PO TID PRN pain #90 tabs 05/07/23 Rx mg tablet ibuprofen 800 mg tablet 800 mg PO BID #180 tabs 05/07/23 Rx hydrocodone 5 mg-acetaminophen 325 1 tab PO TID PRN pain #90 tabs 06/16/23 Rx mg tablet pregabalin 75 mg capsule (Lyrica) 75 mg PO BID #60 caps 06/16/23 Rx Allergies Allergy/AdvReac Type Severity Reaction Status Date / Time No Known Drug Allergies Allergy Verified 05/07/23 09:21 Exam Constitutional Documenting provider has reviewed patient's vital signs: yes Common normals: no apparent distress, oriented x3, healthy appearing, alert and well nourished General appearance: cooperative HENMT Common normals: normocephalic, hearing grossly normal bilaterally and moist oral mucous membranes Head and scalp: normocephalic Eye Common normals: PERRL Pupil: PERRL Neck & C-Spine Common normals: full ROM General: normal visual inspection Cervical spine: pain with cervical ROM, cervical spine tenderness, paracervical muscle tenderness and paracervical muscle spasm Chest Common normals: inspection of chest normal Respiratory Common normals: normal respiratory effort, no retractions and no use of accessory muscles Back & Pelvis Thoracic spine/upper back: pain with ROM Lumbar spine/lower back: pain with ROM Extremity Right upper extremity: shoulder joint Left upper extremity: shoulder joint Right lower extremity: hip joint Left lower extremity: hip joint Other: positive internal and external rotation of bilateral hips pain wraps around to groin bilaterally bilateral shoulders limited ROM, pain with crossbody testing, positive apleys, scratch test, and empty can test Neuro Common normals: oriented x3, CN's II-XII intact bilaterally, moves all extremities, no focal motor deficits, no sensory deficits noted and deep tendon reflexes 2+ bilaterally Sensorium/orientation: alert Motor exam: strength 5/5 throughout and no movement abnormalities noted Psych Common normals: mental status grossly normal, thought process normal, cooperative, affect normal, speech normal and activity/motor behavior normal Speech: normal speech Thought process: normal thought process Results Additional Findings Additional findings: If on a controlled substance or opioids, I have checked an [place] report on this patient and there are no aberrancies noted in the prescribing history.??If on a controlled substance or opioid a drug screen was completed and reviewed within the last year, and if there has not been a drug screen completed we ordered one today to monitor higher risk, state monitored pain medication use. As part of providing excellent, safe, comprehensive care, the following was completed at our patient's visit: 1. A medication reconciliation and review to ensure accurate knowledge of current/active medications, including asking our patients to inform us about any [id number] medications or herbal remedies/nutritional supplements/alternative remedies. 2. A review to specifically ensure our patients have had annual screening for screening for depression, screening for tobacco use, and screening for unhealthy alcohol use. For concerning screenings had a discussion with the patient, provided patient education, and recommended follow-up with primary care provider when appropriate. If patient noted with a risk of falling, they received education on strength, gait, and balance training to prevent future risk of falling. Assessment and Plan Assessment and Plan (1) Primary osteoarthritis of shoulders, bilateral: (2) Cervical spondylosis: (3) Cervical myofascial pain syndrome: (4) Hip osteoarthritis: (5) Chronic pain syndrome: (6) Chronic prescription opiate use: Assessment and Plan: I feel these medications are improving the patient's quality of life and allow them to tolerate activities of daily living as well as participate in recreational activity.? The patient does not report intolerable side effects. The patient is NOT opioid naive and non-pharmacologic and non-opioid treatment has failed to significantly relieve the patient's pain and improve functionality. The patient has a diagnosis that is related to a somatic or visceral pain etiology. ? ?? I reviewed with the patient the potential risks and side effects with the use of? opioid medications including but not limited to respiratory depression,? sedation, and even . I verified the patient has access to naloxone should? these effects occur. I advised the patient to avoid the use of any other? sedation substances including alcohol, THC, and benzodiazepines while? taking opioid medications due to the risk of compounding side effects and? detrimental outcomes. I reviewed the HEMODIALYSIS CHARGE NURSE, pain treatment agreement, urine? drug screen, and opioid start talking forms. The patient was advised to let? their family know they had Naloxone in case they would need to administer? the medication.? ?? A drug screen was completed within the last year, and no aberrancies were noted regarding their use of controlled substances. The patient understands they are subject to the terms and conditions of the pain contract that they have signed. ? ?? I have checked an [place]AR[place] report on this patient today and there are no aberrancies noted in the prescribing history.? Plan bilateral AC joint injections in office, patient going on vacation 08/14/23 and would like to have done prior to vacation continue current medications, tolerating well without side effects previously discussed patient would benefit from bilateral paracervical and trapezius TPI, would like to defer for now and call if needed Narcan 07/23, declines refill f/u 3 months for medication management
--- OUTSIDE RECORDS SUMMARY | 2023-08-06 08:31 | XMS_ITS | CCD ---
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 - J20.8) Instructed to use Robitussin or Mucinex for cough, saline or Flonase NS for congestion, Tylenol for pain and fever. Jun, Primary hypertension (ICD-10 - I10) Avoid decongestants w/ due to elevate BP [facility] Other 03-28-2023 NoteCONSULTATION PROCEDURE DATE: 05/28/2022 IN [...] or sooner if needed. CC: Tevin Torres D.O.[facility] [id number] NoteCONSULTATION CONSULTATION DATE: 05/16/2022 HISTORY: This is [...] coverage. Medications include Lyrica 75 mg b.i.d., Lawnside 5/325 b.i.d. and Zanaflex 4 mg b.i.d. [...] shoulder pain. PLAN: We will increase his Lawnside and refill it at 5/325 t.i.d. and Lyrica 75 mg b.i.d. We will preauthorize with his insurance for a left shoulder Kenalog and Marcaine glenohumeral joint injection. Upon authorization, he will be brought back to the clinic, at that time. Patient agrees with this plan.[facility] [id number] NoteCONSULTATION CONSULTATION DATE: 02/28/2022 HISTORY OF PRESENT [...] and ice which are beneficial. Medications include Lawnside 5/325 b.i.d., Zanaflex 4 mg b.i.d., Lyrica [...] is considering having a consult with the [facility] regarding his shoulder surgery. We will refill and maintain his Lawnside 5/325 b.i.d. He will Zanaflex and Lyrica at the set dose and frequency. We will continue to see him in three months' time for medication management, and patient is in agreement.[facility] [id number] NoteCONSULTATION CONSULTATION DATE: 11/21/2021 HISTORY OF PRESENT ILLNESS: This is a 56-year-old gentleman returning to the clinic for a follow up of his right sided cervical RFA that was completed in August. The patient had the procedure done prior to leaving for a two month trip to [place] and out [place]. Today, he reports his pain a 4/10 [...] 4 mg b.i.d., Lyrica 75 mg b.i.d., Lawnside 5/325 b.i.d. and ibuprofen 800 mg b.i.d. [...] otherwise indicated. Patient agrees with this plan.[facility] [id number] NoteCONSULTATION PROCEDURE DATE: 11/21/2021 PREOPERATIVE DIAGNOSIS: Right [...] the procedure well with no overt complications.[facility] [id number] NoteCONSULTATION CONSULTATION DATE: 08/16/2021 HISTORY OF PRESENT [...] He is leaving in one week for [place] for a two month time period. Upon patient's return, he will decide if he would like to proceed with the left side RFA. His pain level is 2/10 today and describes it as dull. He has been using Biofreeze and Voltaren gel which seem helpful as well. Current medications include Zanaflex 4 mg b.i.d., Lyrica 75 mg b.i.d. and Lawnside 5/325 b.i.d. Activities that aggravate his pain [...] [place] for a two month period, his Lawnside for a 30 day supply will be [...] in the clinic in three months' time. [facility] Signed and Approved by: ADRIANE ROUSSEAU . 08/29/2021 16:23:00[facility]03-16-2022 NoteChief Complaint consultation for foreign body HPI [...] Cap, 75 mg= 1 cap(s), Oral, BID Lawnside 5/325 Tab, 1 tab(s), Oral, BID Singulair [...] virus vaccine, inactivated - Not Given Patient RefusesTrinity Health System West CampusComment on above:Result Comment: Electronically Signed By: Luis Miguel AZEVEDO MD\Date and Time Signed: 05/16/21 17:23 EDTEvaluation note* Diagnosis Onset Date Resolution Status Acute bronchitis due to other specified organisms noneactive [facility] Work Phone: History general Narrative - Reported* Type Description Date [...] History RFA Hospitalization History CHEST PAIN 2010 [facility] Other InstructionsNot on filedocumented in this encounter [facility] Summary Purpose Family History No Family History Records Found Relationship Condition Age at Onset Recorded Date/T susan father Cerebrovascular accident Unknown History of stroke Unknown Advance Directives No Advanced Directives Records Found Advance Directive Response Recorded Date/ Time Advance Directives No March 17, 2017 11:08am Chief Complaint and Reason for Visit Chief Complaint [phone] possibl e strep Reason for Visit Acute bronchitis due to other specified organisms Additional Source Comments (unrecognized sect ion and content) No Status Records FoundNo Status Records FoundNo Status Records FoundNo Status Records FoundNo Status Records FoundNo Status Records Found INFORMATION SOURCE (unrecogn ized section and content) DATE CREATED AUTHOR 08/26/2017 [facility] DATE CREATED AUTHOR AUTHOR'S ORGANIZ ATION 08/26/2017 [facility] DATE CREATED AUTHOR AUTHOR'S ORGANIZ ATION 05/17/2021 [facility] DATE CREATED AUTHOR AUTHOR'S ORGANIZ ATION 07/13/2022 [facility] DATE CREATED AUTHOR AUTHOR'S ORGANIZ ATION 07/02/2023 [facility] DATE CREATED AUTHOR AUTHOR'S ORGANIZ ATION 08/04/2023 [facility] REASON FOR VISIT (unrecogniz ed section and content) Reason Comments Med Refill Care Teams (unrecognized sec tion and content) Supervisor Modern Languages Relationship Specialty Start Date End Date Tevin Torres DO [address] [place] [address] PCP - General Internal Medicine 05/09/20 Team Status: Active Member Role Status Dates Tevin Torres DO Primary Care Provider Active Team Status: Inactive Member Role Status Dates Tevin Torres DO Primary Care Provide r, Attending Provider Active Start: May 19, 2023 End: May 19, 2023 Goals (unrecognized section and content) Goals may be documented in a n alternate section FOR RECORDS PERTAINING TO PATIENTS WHO ARE [...] BE BASED ON THE PRIMARY CLINICAL RECORDS. [facility] [facility]. provides no warranty or guarantee of the accuracy or completeness of information in this document.
== END 2023-08-06 08:27 | disposition home or self-care (01) ==
LOC: PM 08:27
PROVIDERS: PCP Internal Medicine; Visit Provider Nurse Practitioner
DX: M19.012 Primary osteoarthritis, left shoulder (principal); M19.011 Primary osteoarthritis, right shoulder; M47.812 Spondylosis without myelopathy or radiculopathy, cervical region; M79.18 Myalgia, other site; M16.0 Bilateral primary osteoarthritis of hip; G89.4 Chronic pain syndrome; Z79.891 Long term (current) use of opiate analgesic
CPT/HCPCS: G0463

== ENCOUNTER 2023-08-11 13:27 | Outpatient (OUT) | payer OTHER, SELFPAY ==
--- OUTSIDE RECORDS SUMMARY | 2023-08-11 13:50 | XMS_ITS | CCD ---
Author Organization [facility] Care Team Providers Care Last Puller Name Role Phone Js Senior Unavailable Unavailable [...] Reaction(s) Facility (5 sources) Morphine Drug Allergy [facility] [email or web address] Other Medications Current Medications Medication Drug Class(es) [...] needed Orally every 6 hrs PRN Active [id number] 200 actuat albuterol 0.09 mg/actuat metered dose [...] Start: 05-05-2020 take 1 capsule by mo [facility] twice daily pregabalin (LYRICA) 75 mg capsule [...] 02/04/2022 Active take 1 capsule by mo [facility] every twenty-four hours Tamsulosin HCl 0.4 MG [...] 19, 2023 9:36am take [facility]-four hours cloNIDine HCl 0.1 [...] Chema Obrien on 04/01/2023 1:46 PM Normal [facility] Ambulatory Visit Summaryon 0 05-16-2021 Ambulatory Visit Summary ANDREWS BRIAN :1965 Visit Date:05/16/2021 Ambulatory Visit Instructions Your Care Team Attending Physician - Luis Miguel AZEVEDO MD Primary Care Physician - TEVIN TORRES DO Referring Physician - TEVIN TORRES DO This Is Your Medications List acetaminophen-hydrocodone (Stratham 5/325 Tab) albuterol (albuterol HFA 90 mcg/inh [...] What How Much When Instructions Unchanged acetaminophen-hydrocodone (Stratham 5/ 325 Tab) 1 Tablets By Mouth [...] PHIL (obstructive sleep apnea) Pituitary microadenoma [facility] Physician Referralon 022 Physician Referral [id number]:127 [facility] OPERATIVE REPORTon 7 OPERATIVE REPORT NAME: LENNY BRIAN#: [id number]: Js Senior, MDDATE OF SURGERY: 11/07/2016OPERATIVE REPORTPREOPERATIVE [...] to follow up in 2weeks and discharged home.[facility] PT NAME: LENNY BRIAN#: [id number] [place] [address] ACCT: [id number]: 61OPERATIVE REPORTA successful air arthrogram was performed prior to administration ofmedication. JS SENIOR, JOSE/MEYL/[id number]: 11/07/2016 16:06:43 E/S: Js Senior, DO11/28/16 1546Signature on [facility] NAME: LENNY BRIAN#: [id number] [place] [address] ACCT: [id number]: 63OPERATIVE REPORT [facility] Vital Signs Date Time Vital Sign Value Performing Clinician Facility 01-01-2023 09:00-0400 Body height 182.88 cm Tevin [facility] Other [facility] Other 01-01-2023 09:00-0400 Body mass index (BMI) [Ratio] 25.3 kg/m2 Tevin Ball Other [facility] Other 01-01-2023 09:00-0400 Body weight 84.64 kg Tevin Ball Other [facility] Other 01-01-2023 09:00-0400 Diastolic blood pressure 80 mm[Hg] Tevin Ball Other [facility] Other 01-01-2023 09:00-0400 Respiratory rate 12 /min Tevin Ball Other [facility] Other 01-01-2023 09:00-0400 Systolic blood pressure 139 mm[Hg] Tevin [facility] Other [facility] Other 06-27-2022 11:00-0400 Body height 182.88 cm Tevin Ball Other [facility] Other 06-27-2022 11:00-0400 Body mass index (BMI) [Ratio] 25.66 kg/m2 Tevin Ball Other [facility] Other 06-27-2022 11:00-0400 Body weight 85.82 kg Tevin Ball Other [facility] Other 06-27-2022 11:00-0400 Diastolic blood pressure 86 mm[Hg] Tevin Ball Other [facility] Other 06-27-2022 11:00-0400 Respiratory rate 12 /min Tevin Ball Other [facility] Other 06-27-2022 11:00-0400 Systolic blood pressure 136 mm[Hg] Tevin Ball Other [facility] Other 06-17-2022 12:15-0400 Body height 182.88 cm Tevin Ball Other [facility] Other 06-17-2022 12:15-0400 Body mass index (BMI) [Ratio] 25.22 kg/m2 Tevin Ball Other [facility] Other 06-17-2022 12:15-0400 Body weight 84.37 kg Tevin Ball Other [facility] Other 06-17-2022 12:15-0400 Diastolic blood pressure 77 mm[Hg] Tevin Ball Other [facility] Other 06-17-2022 12:15-0400 Respiratory rate 12 /min Tevin Ball Other [facility] Other 06-17-2022 12:15-0400 Systolic blood pressure 116 mm[Hg] Tevin Torres Other [facility] Other Encounters Encounter Date Encounter Type Care Provider Facility Start: 08-04-2023 ambulatory [facility] Start: 07-03-2023 End: 08-02-2023 ambulatory [facility] Start: 07-01-2023 End: 07-01-2023 ambulatory [facility] Start: 05-19-2023 End: 05-19-2023 ambulatory [facility] Work Phone: Start: 05-19-2023 End: 05-19-2023 Patient encounter procedure [facility] Work Phone: Start: 05-05-2023 Refill Ulises Schneider Dasdak [employer] Work Phone: [facility] Start: 04-30-2023 Refill Ulises Schneider ner [employer] Work Phone: [facility] Start: 04-01-2023 End: 04-02-2023 Emergency department patient visit ULISES GRAHAM [facility] Start: 02-14-2023 End: 02-14-2023 ambulatory Tevin Torres Other [facility] Other Start: 02-14-2023 Telephone encounter Tevni Torres [facility] Start: 01-01-2023 End: 01-01-2023 ambulatory Tevin Torres Other [facility] Other Start: 01-01-2023 Encounter for genera l adult medical examination without abnormal findings Tevin Torres [facility] Start: 01-01-2023 Periodic preventive med est patient 40-64yrs Tevin Torres [facility] Start: 07-11-2022 End: 07-12-2022 ambulatory LISSETT NEWTON . Facility:[facility] Start: 06-27-2022 End: 06-27-2022 ambulatory Tevin Torres Other [facility] Other Start: 06-27-2022 Office outpatient visit 25 minutes Tevin Torres [facility] Start: 06-17-2022 End: 06-17-2022 ambulatory Tevin Torres Other [facility] Other Start: 06-17-2022 Office outpatient visit 15 minutes Tevin Torres [facility] Start: 06-03-2022 End: 06-03-2022 ambulatory Tevin Torres Other [facility] Other Start: 06-03-2022 Office outpatient visit 15 minutes Tevin Torres [facility] Start: 05-28-2022 End: 05-29-2022 ambulatory NARENDRANATH LAKSHMIPATHY . Facility:[facility] Start: 05-16-2022 End: 05-17-[address] CODY ROB . Facility:[facility] Start: 02-28-2022 End: 03-01-[address] CODY ROB . Facility:[facility] Start: 11-21-2021 End: 11-22-[address] CODY ROB . Facility:[facility] Start: 08-16-2021 End: 08-17-[address] CODY ROB . Facility:[facility] Start: 07-24-[address] CODY ROB . Faci lity:[facility] Start: 11-07-2016 Ambulatory Js Hansoni ty:[facility] Start: 11-07-2016 Ambulatory Facility:[id number] Plan of Treatment Date Care Activity Detail Author Start: 04-01-2024 Tobacco Screening Tobacco Screening [facility] Start: 11-01-2022 COVID-19 Vaccine ( season) COVID-19 Vaccine () [facility] Start: 11-01-2022 Influenza vaccination Influenza Vaccine [facility] Start: 03-26-2022 Adult BMI Screening Adult BMI Screening [facility] Start: 09-19-2013 Administration of varicella zoster vaccine Zoster (Shingles) Vaccine (1 of 2) [facility] Start: 09-19-1982 DTaP,Tdap and Td Vaccines (1 - Tdap) DTaP,Tdap and Td Vaccines (1 - Tdap) [facility] Start: 1975 Depression Screening Depression Screening [facility] Streptococcus pyogen es Ag [Presence] in Unspecified specimen [facility] Immunizations Immunization Date Immunization Notes Care Provider Fa surendra NEGATED: Highlighted row has not occurred!04-24-2015 influenza, seasonal, injectable Tevin Torres Other [facility] Other NEGATED: Highlighted row has not occurred!04-24-2015 pneumococcal polysaccharide vaccine, 23 valent Tevin Torres Other [facility] Other Payers Date Payer Category Payer Unknown [employer] [id number] 2021-Present [phone] [address] [place] [address] [id number] 2019 Unknown [id number] 2015 Unknown [id number] 1965 Unknown [id number] 2.16840.1.824405.3.579.2. 593 1965 Unknown [id number] 2.840.1.763457.3.579.2. 593 1965 Unknown [id number] 2.16.840.1.177462.3.579.2. 593 1965 Unknown [id number] 2.16.840.1.304946.3.579.2. 593 1965 Unknown [id number] 2.16.840.1.426847.3.579.2. 593 1965 Unknown [id number] 2.16840.1.316406.3.579.2. 593 1965 Unknown [id number] 2.16.840.1.660581.3.579.2. 593 1965 Unknown [id number] 2.16.840.1.171636.3.579.2. 593 1965 Unknown [id number] 2.16.840.1.575306.3.579.2. 1286 1965 Unknown [id number] 2.16.840.1.123579.3.579.2. 1286 1965 Unknown [id number] 2.16.840.1.343961.3.579.2. 1286 1965 Unknown [id number] 2.16.840.1.461499.3.579.2. 1286 1965 Unknown [id number] 2.16.840.1.124508.3.579.2. 1286 1959 Unknown [id number] 2.16.840.1.081290.19 Private Health Insurance [employer] [id number] Self-pay Self Pay [id number] Unknown [id number] Social History Date Type Detail Facility Start: 04-20-2020 End: 05-22-2020 Sex Assigned At [facility] Other Start: 01-01-2023 End: 04-01-2023 Tobacco smoking status NHIS Never smoked tobacco [facility] Start: 04-01-2023 Tobacco use and exposure Smokeless tobacco non-user [facility] Start: 04-01-2023 Alcohol intake Ex-drinker (finding) [facility] Start: 04-20-2020 End: 05-22-2020 History of Social function [facility] How often to you hav e a drink containing alcohol? Never [facility] Average Number of Drinks Not on file [facility] Start: 1965 Sex Assigned At Not on file [employer] Start: 1965 Sex Assigned At Male F [facility] Medical Equipment Procedure Code Equipment Code Equipment Origin al Text Equipment Identifier Dates Implant Bio Tiss Med Bvn At Dlv Dev Bioinductive Impl - Sna - [id number] Start: 02-14-2021 [place] [employer] As cp Dlv - Sna - [id number] Start: 02-14-2021 Clinical Notes 05-16-2021 to 02-14-2023 Note Date & Type Note Facility 02-14-2023 Evaluation note Encounter Date Diagnosis Assessment Notes Jan, Hyperprolactinemia (ICD-10 - E22.1) [facility] Other 11-01-2023 Evaluation note* Encounter Date Diagnosis [...] use, the patient reduces the risk for SD, CVA, HTN, cardiac dysrhythmias and sudden cardiac [...] (ICD-10 - Z12.5) Yearly RENAN and PSA [facility] Other 05-11-2023 NotePROCEDURE: XR SHOULDER RT 2V [...] Electronically authenticated by: LIBBY ARMENTA Date: 2022-07-11 10:26[facility]04-27-2023 Evaluation note* Encounter Date Diagnosis Assessment Notes [...] weight: Diabetes, HTN, Hyperlipidemia, CAD and arthritis. [facility] Other 04-17-2023 Evaluation note* Encounter Date Diagnosis Assessment Notes Treatment Notes Treatment Clinical Notes Jun, Allergic contact dermatitis due to plants, except food (ICD-10 - L23.7) Cool compresses, Nina, Benadryl and Prednisone. Avoid scratching [facility] Other 04-03-2023 Evaluation note* Encounter Date Diagnosis Assessment Notes Treatment Notes Treatment Clinical Notes Jun, Acute bronchitis due to other specified organisms (ICD-10 - J20.8) Instructed to use Robitussin or Mucinex for cough, saline or Flonase NS for congestion, Tylenol for pain and fever. Jun, Primary hypertension (ICD-10 - I10) Avoid decongestants w/ due to elevate BP [facility] Other 03-28-2023 NoteCONSULTATION PROCEDURE DATE: 05/28/2022 IN [...] sooner if needed. CC: Tevin Torres D.O.[facility] [id number] NoteCONSULTATION CONSULTATION DATE: 05/16/2022 HISTORY: This is [...] coverage. Medications include Lyrica 75 mg b.i.d., Stratham 5/325 b.i.d. and Zanaflex 4 mg b.i.d. [...] shoulder pain. PLAN: We will increase his Stratham and refill it at 5/325 t.i.d. and Lyrica 75 mg b.i.d. We will preauthorize with his insurance for a left shoulder Kenalog and Marcaine glenohumeral joint injection. Upon authorization, he will be brought back to the clinic, at that time. Patient agrees with this plan.[facility] [id number] NoteCONSULTATION CONSULTATION DATE: 02/28/2022 HISTORY OF PRESENT [...] and ice which are beneficial. Medications include Stratham 5/325 b.i.d., Zanaflex 4 mg b.i.d., Lyrica [...] is considering having a consult with the [employer] regarding his shoulder surgery. We will refill and maintain his Stratham 5/325 b.i.d. He will Zanaflex and Lyrica at the set dose and frequency. We will continue to see him in three months' time for medication management, and patient is in agreement.[facility] [id number] NoteCONSULTATION CONSULTATION DATE: 11/21/2021 HISTORY OF PRESENT ILLNESS: This is a 56-year-old gentleman returning to the clinic for a follow up of his right sided cervical RFA that was completed in August. The patient had the procedure done prior to leaving for a two month trip to [place] and out [place]. Today, he reports his pain a 4/10 [...] 4 mg b.i.d., Lyrica 75 mg b.i.d., Stratham 5/325 b.i.d. and ibuprofen 800 mg b.i.d. [...] otherwise indicated. Patient agrees with this plan.[facility] [id number] NoteCONSULTATION PROCEDURE DATE: 11/21/2021 PREOPERATIVE DIAGNOSIS: Right [...] the procedure well with no overt complications.[facility] [id number] NoteCONSULTATION CONSULTATION DATE: 08/16/2021 HISTORY OF PRESENT [...] mg b.i.d., Lyrica 75 mg b.i.d. and Stratham 5/325 b.i.d. Activities that aggravate his pain [...] Judy for a two month period, his Stratham for a 30 day supply will be [...] in the clinic in three months' time. [facility] Signed and Approved by: ADRIANE ROUSSEAU . 08/29/2021 16:23:00[facility]03-16-2022 NoteChief Complaint consultation for foreign body HPI [...] Cap, 75 mg= 1 cap(s), Oral, BID Stratham 5/325 Tab, 1 tab(s), Oral, BID Singulair [...] virus vaccine, inactivated - Not Given [facility] CenterComment [facility] above:Result Comment: Electronically Signed By: Luis Miguel AZEVEDO MD\Date and Time Signed: 05/16/21 17:23 EDTEvaluation note* Diagnosis Onset Date Resolution Status Acute bronchitis due to other specified organisms noneactive [facility] Work Phone: History general Narrative - Reported* [...] History RFA Hospitalization History CHEST PAIN 2010 [facility] Other InstructionsNot on filedocumented in this encounter [facility] [employer] Summary Purpose Family History No Family History Records Found Relationship Condition Age at Onset Recorded Date/T susan father Cerebrovascular accident Unknown History of stroke Unknown Advance Directives No Advanced Directives Records Found Advance Directive Response Recorded Date/ Time Advance Directives No March 17, 2017 11:08am Chief Complaint and Reason for Visit Chief Complaint [phone] possibl e strep Reason for Visit Acute bronchitis due to other specified organisms Additional Source Comments (unrecognized sect ion and content) No Status Records FoundNo Status Records FoundNo Status Records FoundNo Status Records FoundNo Status Records FoundNo Status Records Found INFORMATION SOURCE (unrecogn ized section and content) DATE CREATED AUTHOR 08/26/2017 [facility] DATE CREATED AUTHOR AUTHOR'S ORGANIZ ATION 08/26/2017 [facility] DATE CREATED AUTHOR AUTHOR'S ORGANIZ ATION 05/17/2021 [facility] DATE CREATED AUTHOR AUTHOR'S ORGANIZ ATION 07/13/2022 [facility] DATE CREATED AUTHOR AUTHOR'S ORGANIZ ATION 07/02/2023 [facility] DATE CREATED AUTHOR AUTHOR'S ORGANIZ ATION 08/10/2023 [facility] REASON FOR VISIT (unrecogniz ed section and content) Reason Comments Med Refill Care Teams (unrecognized sec tion and content) Last Puller Relationship Specialty Start Date End Date Tevin Torres DO [address] [place] [address] PCP - General Internal Medicine 05/09/20 Team [...] BE BASED ON THE PRIMARY CLINICAL RECORDS. [employer]. provides no warranty or guarantee of the accuracy or completeness of information in this document.
--- NOTE | 2023-08-11 14:21 | P.CN_ITS ---
Consult Note: HPI Data of Consult Patient: known to practice within the last 3 years Consult date: 08/11/23 Requesting Physician: Chandrika Diaz MD Primary Care Provider: Tevin Torres DO Consult Narrative Reason for consult: bilateral shoulder pain Narrative: 57yom who presents for in office injection. continues to have bilateral shoulder pain, would like to proceed with injection. cc:: CC: Chandrika Diaz MD Review of Systems ROS Status of ROS 10 or more systems reviewed and unremark able except as noted in history and below [facility] Medical History Back pain of thoracolumbar region ?M54.50 - Low back pain, unspecified (ICD-10) ?M54.6 - Pain in thoracic spine (ICD-10) Meds Home Medications and Allergies Home Medications ?Medication ?Instructions ?Recorded ?Confirmed ?Type albuterol 90 mcg/actuation aerosol mcg inhalation 11/07/22 History inhaler amlodipine 5 mg tablet 5 mg PO DAILY 11/07/22 11/07/22 History atorvastatin 20 mg tablet 20 mg PO DAILY 11/07/22 11/07/22 History baclofen 10 mg tablet 10 mg PO TID PRN muscle spasm 11/07/22 11/07/22 History ibuprofen 800 mg tablet 800 mg PO TID-QID PRN pain 11/07/22 11/07/22 History mometasone-formoterol HFA 200 2 puff inhalation BID 11/07/22 11/07/22 History mcg-5 mcg/actuation aerosol inhaler (Dulera) hydrocodone 5 mg-acetaminophen 325 1 tab PO TID PRN pain #90 tabs 05/07/23 Rx mg tablet pregabalin 75 mg capsule (Lyrica) 75 mg PO BID #60 caps 06/16/23 Rx cabergoline 0.5 mg tablet 0.5 mg PO .TWICE/WEEK 08/06/23 08/06/23 History hydrocodone 5 mg-acetaminophen 325 1 tab PO TID PRN pain #90 tabs 08/06/23 Rx mg tablet Allergies Allergy/AdvReac Type Severity Reaction Status Date / Time No Known Drug Allergies Allergy Verified 05/07/23 09:21 Exam Narrative Exam Narrative: Psych-alert and oriented x 3.? Attentive and appropriate, constitutionally normal, displays normal mood and affect per situation.? There are no obvious deficits in memory, reasoning, or intellect.? Skin-no obvious rashes, bruising, or erythema noted to the patient's area of pain. Extremities-upper extremities are warm with minimal edema and palpable pulses. Shoulder - tenderness to palpation in bilateral shoulder. Pain with abduction, external rotation bilaterally. Coordination remains intact.? Gait remains non-antalgic.? Assessment and Plan Assessment and Plan (1) Primary osteoarthritis of shoulders, bilateral: Plan 57yom who presents for in office injection. continues to have bilateral shoulder pain. has had significant relief previously of >50% for >3 months. we agree to proceed with bilateral shoulder injection. Procedure: Bilateral shoulder osteoarthritis Medications: Bupivacaine 0.25% 4cc, kenalog 40mg x2 I explained the details of the procedure to the patient including the risks, benefits, and alternatives.? We had an informed discussion.? The patient verbalized understanding and signed the consent form.? All questions were answered appropriately.? A time-out was performed.? After obtaining a comfortable seated position, the skin overlying the right shoulder was prepped with alcohol 3 times.? The sulcus between the head of the humerus and the acromion was identified.? The needle was inserted in a sterile manner 2 cm inferior and medial to the posterolateral corner of the acromion and was directed anteriorly toward the coracoid process. The contents of the syringe were gently injected without any resistance into the joint space after negative aspiration for blood or other bodily fluids.? The needle was removed and pressure was applied at the injection site to decrease the incidence of ecchymosis and hematoma formation.? A sterile bandage was applied. The same procedure was then comleted on the left side.
== END 2023-08-11 13:28 | disposition home or self-care (01) ==
LOC: PM 13:28
PROVIDERS: PCP Internal Medicine; Visit Provider Anesthesiology
DX: M19.012 Primary osteoarthritis, left shoulder (principal); M19.011 Primary osteoarthritis, right shoulder; M25.511 Pain in right shoulder; M25.512 Pain in left shoulder
CPT/HCPCS: 20610

== ENCOUNTER 2023-11-13 10:41 | Outpatient (OUT) | payer OTHER, SELFPAY ==
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
--- NOTE | 2023-11-13 11:03 | P.CN_ITS ---
Consult Note: HPI Data of Consult Patient: known to practice within the last 3 years Requesting Physician: Nancy Horan NP Primary Care Provider: Tevin Torres, Consult Narrative Reason for consult: f/u Narrative: Trey Hernandez a pleasant 57 year old male presents for evaluation and management of chronic pain, historically cervical spine, shoulders, and bilateral hips. Chronic pain unresponsive to PT and provided guided HEP greater than 6 weeks. Historically could not afford interventional therapy. Pain today 3-4/10 constant neck, bilateral shoulders increasing to 8/10 with twisting, pushing, pulling, activity, lifting, improved with heat, massage, and medications. Historically evaluated by Dr Murphy in the past for bilateral shoulders but recently underwent bilateral shoulder injections with significant improvement ongoing. Patient is noticing increase in cervical spine pain and headaches, recent MRI of brain completed through PC per pt. Patient having severe headaches and stabbing aching pain of cervical spine, hx of cervical ddd and facet arthropathy. Patient weaning off of medications due to brain fog, IBS with constipation and diarrhea. cc:: CC: Nancy Horan NP Review of Systems ROS Status of ROS 10 or more systems reviewed and unremark able except as noted in history and below Musculoskeletal Reports: neck pain and joint pain PFSH PFSH Medical History Back pain of thoracolumbar region ?M54.50 - Low back pain, unspecified (ICD-10) ?M54.6 - Pain in thoracic spine (ICD-10) Meds Home Medications and Allergies Home Medications ?Medication ?Instructions ?Recorded ?Confirmed ?Type albuterol 90 mcg/actuation aerosol mcg inhalation 11/07/22 History inhaler amlodipine 5 mg tablet 5 mg PO DAILY 11/07/22 11/07/22 History atorvastatin 20 mg tablet 20 mg PO DAILY 11/07/22 11/07/22 History baclofen 10 mg tablet 10 mg PO TID PRN muscle spasm 11/07/22 11/07/22 History ibuprofen 800 mg tablet 800 mg PO TID-QID PRN pain 11/07/22 11/07/22 History mometasone-formoterol HFA 200 2 puff inhalation BID 11/07/22 11/07/22 History mcg-5 mcg/actuation aerosol inhaler (Dulera) hydrocodone 5 mg-acetaminophen 325 1 tab PO TID PRN pain #90 tabs 05/07/23 Rx mg tablet pregabalin 75 mg capsule (Lyrica) 75 mg PO BID #60 caps 06/16/23 Rx cabergoline 0.5 mg tablet 0.5 mg PO .TWICE/WEEK 08/06/23 08/06/23 History hydrocodone 5 mg-acetaminophen 325 1 tab PO TID PRN pain #90 tabs 08/06/23 Rx mg tablet hydrocodone 5 mg-acetaminophen 325 1 tab PO TID PRN pain #90 tabs 10/21/23 Rx mg tablet Allergies Allergy/AdvReac Type Severity Reaction Status Date / Time No Known Drug Allergies Allergy Verified 05/07/23 09:21 Exam Constitutional Documenting provider has reviewed patient's vital signs: yes Common normals: no apparent distress, oriented x3, healthy appearing, alert and well nourished General appearance: cooperative HENMT Common normals: normocephalic, hearing grossly normal bilaterally and moist oral mucous membranes Head and scalp: normocephalic Eye Common normals: PERRL Pupil: PERRL Neck & C-Spine Common normals: full ROM General: normal visual inspection Cervical spine: pain with cervical ROM, cervical spine tenderness, paracervical muscle tenderness and paracervical muscle spasm Other: positive facet loading c3/4 c4/5 negative spurlings sensation intact BUE strength 5/5 in BUE intermittent numbness tingling to last three digits of left hand Chest Common normals: inspection of chest normal Respiratory Common normals: normal respiratory effort, no retractions and no use of acce ssory muscles Extremity Common normals: normal to inspection and full ROM Neuro Common normals: oriented x3, CN's II-XII intact bilaterally, moves all extremities, no focal motor deficits, no sensory deficits noted, deep tendon reflexes 2+ bilaterally and gait normal Sensorium/orientation: alert Motor exam: strength 5/5 throughout and no movement abnormalities noted Psych Common normals: mental status grossly normal, thought process normal, cooperative, affect normal, speech normal and activity/motor behavior normal Speech: normal speech Thought process: normal thought process Results Additional Findings Additional findings: If on a controlled substance or opioids, I have checked an [place] report on this patient and there are no aberrancies noted in the prescribing history.??If on a controlled substance or opioid a drug screen was completed and reviewed within the last year, and if there has not been a drug screen completed we ordered one today to monitor higher risk, state monitored pain medication use. As part of providing excellent, safe, comprehensive care, the following was completed at our patient's visit: 1. A medication reconciliation and review to ensure accurate knowledge of current/active medications, including asking our patients to inform us about any [id number] medications or herbal remedies/nutritional supplements/alternative remedies. 2. A review to specifically ensure our patients have had annual screening for screening for depression, screening for tobacco use, and screening for unhealthy alcohol use. For concerning screenings had a discussion with the patient, provided patient education, and recommended follow-up with primary care provider when appropriate. If patient noted with a risk of falling, they received education on strength, gait, and balance training to prevent future risk of falling. Assessment and Plan Assessment and Plan (1) Cervical myofascial pain syndrome: (2) Cervical spondylosis: (3) Degenerative disc disease, cervical: (4) Primary osteoarthritis of shoulders, bilateral: Assessment and Plan: >80% improvement ongoing from prior injection Plan patient declining update cervical MRI to evaluate severe cervical pain, concerned for stenosis and bulging disc with hx of DDD. increased facet pain at C3/4 C4/5, pt declining cervical xray he does not think he has instability. 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 defer tizanidine at this time as pt wants to continue baclofen 10mg BID PRN weaning off. he is weaning off of hydrocodone-acetaminophen at this time. patient would like cervical TPI with Dr Sawyer for cervical myofascial pain.
== END 2023-11-13 10:42 | disposition home or self-care (01) ==
LOC: PM 10:41
PROVIDERS: PCP Internal Medicine; Visit Provider Nurse Practitioner
DX: M79.18 Myalgia, other site (principal); M47.812 Spondylosis without myelopathy or radiculopathy, cervical region; M50.30 Other cervical disc degeneration, unspecified cervical region; M19.012 Primary osteoarthritis, left shoulder; M19.011 Primary osteoarthritis, right shoulder
CPT/HCPCS: G0463

== ENCOUNTER 2023-11-18 11:10 | Outpatient (OUT) | payer OTHER, SELFPAY ==
--- NOTE | 2023-11-18 | CONS_ITS ---
PROCEDURE DATE: 11/18/2023 PROCEDURE: Trigger point injection left splenius capitis at C6 and left trapezius at T1. PREOPERATIVE DIAGNOSIS: Pain secondary to myofascial spasm with myalgia of the left splenius capitis and the left trapezius. POSTOPERATIVE DIAGNOSIS: Pain secondary to myofascial spasm with myalgia of the left splenius capitis and the left trapezius. SOLUTION USED FOR INJECTION: 2 mL of 2% lidocaine, 2 mL of 0.25% Marcaine and 20 mg of Kenalog, total of 5 mL, and 5 mL used for the injection total, 2.5 mL at the site. IMMEDIATE COMPLICATIONS: None. PROCEDURE: After informed consent was obtained from the patient, placed in the sitting. Skin overlying the area was prepped with alcohol. A 25 gauge, 1 ?? needle inserted over into the substance of the left splenius capitis at the C6 level on the left. Needle was advance until there was a twitch response, at which point we injected 2.5 mL of solution. Repeated in a similar fashion in the left trapezius at the T1 level. No indication of intravascular, intraneural or intrapleural needle tip placement or injection. Post procedure, patient reports a marked reduction in pain symptoms. Discharged home after meeting criteria. CC: Dr. Brian CHARLES
--- OUTSIDE RECORDS SUMMARY | 2023-11-18 11:16 | XMS_ITS | CCD ---
Author Organization [facility] Care Team Providers Care Medical Claims Analyst Name Role Phone Harjit Aldrich Unavailable Unavailable [...] Reaction(s) Facility (5 sources) Morphine Drug Allergy [facility] [employer] Other Medications Current Medications Medication Drug Class(es) [...] needed Orally every 6 hrs PRN Active [id number] 200 actuat albuterol 0.09 mg/actuat metered dose [...] 12:00am Start: 05-05-2020 take 1 capsule by [facility] twice daily pregabalin (LYRICA) 75 mg capsule [...] 02/04/2022 Active take 1 capsule by mo [facility] every twenty-four hours Tamsulosin HCl [...] IMPRESSION: No acute intracranial findings Finalized by Julián Forbes MD on 11/10/2023 10:27 AM Normal [facility] XR RIBS RT 3 VWS W PA [...] Chema Obrien on 04/01/2023 1:46 PM Normal [facility] Ambulatory Visit Summaryon 0 05-16-2021 Ambulatory Visit Summary ANDREWS BRIAN :1965 Visit Date:05/16/2021 Ambulatory Visit Instructions Your Care Team Attending Physician - Luis Miguel AZEVEDO MD Primary Care Physician - TEVIN TORRES DO Referring Physician - TEVIN TORRES DO This Is Your Medications List acetaminophen-hydrocodone (Milford 5/325 Tab) albuterol (albuterol HFA 90 mcg/inh [...] What How Much When Instructions Unchanged acetaminophen-hydrocodone (Milford 5/ 325 Tab) 1 Tablets By Mouth [...] PHIL (obstructive sleep apnea) Pituitary microadenoma Normal [facility] Physician Referralon 022 Physician Referral [id number]:127 Normal [facility] OPERATIVE REPORTon 7 OPERATIVE REPORT NAME: LENNY BRIAN#: [id number]: Harjit Aldrich, MDDATE OF SURGERY: 11/07/2016OPERATIVE REPORTPREOPERATIVE [...] to follow up in 2weeks and discharged home.[facility] PT NAME: LENNY BRIAN#: [id number] [place] [address] ACCT: [id number]: 63OPERATIVE REPORTA successful air arthrogram was performed prior to administration ofmedication. JOSE WESTON/JESSY/[id number]: 11/07/2016 16:06:43 E/S: Harjit Aldrich, DO11/28/16 1546Signature on [facility] PT NAME: LENNY BRIAN#: [id number] [place] [address] ACCT: [id number]: 63OPERATIVE REPORT Normal [facility] Vital Signs Date Time Vital Sign Value Performing Clinician Facility 01-01-2023 09:00-0400 Body height 182.88 cm Tevin [employer] Other [facility] Other 01-01-2023 09:00-0400 Body mass index (BMI) [Ratio] 25.3 kg/m2 Tevin Ball Other [facility] Other 01-01-2023 09:00-0400 Body weight 84.64 kg Tevin Ball Other [facility] Other 01-01-2023 09:00-0400 Diastolic blood pressure 80 mm[Hg] Tevin Ball Other [facility] Other 01-01-2023 09:00-0400 Respiratory rate 12 /min Tevin Ball Other [facility] Other 01-01-2023 09:00-0400 Systolic blood pressure 139 mm[Hg] Tevin Ball Other [facility] Other 06-27-2022 11:00-0400 Body height 182.88 cm Tevin Ball Other [facility] Other 06-27-2022 11:00-0400 Body mass index (BMI) [Ratio] 25.66 kg/m2 Tevin Ball Other [facility] Other 06-27-2022 11:00-0400 Body weight 85.82 kg Tevin Ball Other [facility] Other 06-27-2022 11:00-0400 Diastolic blood pressure 86 mm[Hg] Tevin Ball Other [facility] Other 06-27-2022 11:00-0400 Respiratory rate 12 /min Tevin Ball Other [facility] Other 06-27-2022 11:00-0400 Systolic blood pressure 136 mm[Hg] Tevin Ball Other [facility] Other 06-17-2022 12:15-0400 Body height 182.88 cm Tevin Ball Other [facility] Other 06-17-2022 12:15-0400 Body mass index (BMI) [Ratio] 25.22 kg/m2 Tevin Ball Other [facility] Other 06-17-2022 12:15-0400 Body weight 84.37 kg Tevin Ball Other [facility] Other 06-17-2022 12:15-0400 Diastolic blood pressure 77 mm[Hg] Tevin Ball Other [facility] Other 06-17-2022 12:15-0400 Respiratory rate 12 /min Tevin Ball Other [facility] Other 06-17-2022 12:15-0400 Systolic blood pressure 116 mm[Hg] Tevin Ball Other [facility] Other Encounters Encounter Date Encounter Type Care Provider Facility Start: 11-10-2023 End: 11-10-2023 ambulatory [facility] Start: 10-20-2023 End: 10-22-2023 ambulatory [facility] Start: 10-15-2023 End: 10-17-2023 ambulatory [facility] Start: 10-09-2023 End: 10-09-2023 ambulatory [facility] Start: 08-11-2023 End: 08-11-2023 ambulatory Chandrika Diaz MD Facility:[facility] Start: 08-04-2023 End: 09-01-2023 ambulatory [facility] Start: 07-03-2023 End: 08-02-2023 ambulatory [facility] Start: 07-01-2023 End: 07-01-2023 ambulatory [facility] Start: 05-19-2023 End: 05-19-2023 ambulatory [facility] Work Phone: Start: 05-19-2023 End: 05-19-2023 Patient encounter procedure [facility] Work Phone: Start: 05-05-2023 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 Start: 01-01-2023 End: 01-01-2023 ambulatory Tevin Torres Other [facility] Other Start: 01-01-2023 Encounter for devonte l adult medical examination without abnormal findings Tevin Torres [facility] Start: 01-01-2023 Periodic preventive med est patient 40-64yrs Tevin Torres [facility] Start: 07-11-2022 End: 07-12-2022 ambulatory [facility] . Facility:[facility] Start: 06-27-2022 End: 06-27-2022 ambulatory Tevin Torres Other [facility] Other Start: 06-27-2022 Office outpatient visit 25 minutes Tevin Torres [facility] Start: 06-17-2022 End: 06-17-2022 ambulatory Tevin Torres Other [facility] Other Start: 06-17-2022 Office outpatient visit 15 minutes Tevin Torres [facility] Start: 06-03-2022 End: 06-03-2022 ambulatory Tevin Torres Other [facility] Other Start: 06-03-2022 Office outpatient visit 15 minutes Tevin Torres [facility] Start: 05-28-2022 End: 05-29-2022 ambulatory NARENDRANATH [...] Faci lity:[facility] Start: 11-07-2016 Ambulatory Harjit Hansoni ty:[facility] Start: 11-07-2016 Ambulatory Facility:[id number] Plan of Treatment Date Care Activity Detail Author Start: 04-01-2024 Tobacco Screening Tobacco Screening [facility] Start: 11-01-2022 COVID-19 Vaccine ( season) COVID-19 Vaccine ( season) [facility] Start: 11-01-2022 Influenza vaccination Influenza Vaccine [facility] Start: 03-26-2022 Adult BMI Screening Adult BMI Screening [facility] Start: 09-19-2013 Administration of varicella zoster vaccine Zoster (Shingles) Vaccine (1 of 2) [facility] Start: 09-19-1982 DTaP,Tdap and Td Vaccines (1 - Tdap) DTaP,Tdap and Td Vaccines (1 - Tdap) [facility] Start: 1975 Depression Screening Depression Screening [facility] Streptococcus pyogen es Ag [Presence] in Unspecified specimen [facility] Immunizations Immunization Date Immunization Notes Care Provider Fa surendra NEGATED: Highlighted row has not occurred!04-24-2015 influenza, seasonal, injectable Tevin Torres Other [facility] Other NEGATED: Highlighted row has not occurred!04-24-2015 pneumococcal polysaccharide vaccine, 23 valent Tevin Torres Other [facility] Other Payers Date Payer Category Payer Unknown [id number] 2019 Unknown [id number] 2015 Unknown [id number] 1965 Unknown [id number] 2.16.840.1.255990.3.579.2.593 1965 Unknown [id number] 2.16.840.1.622730.3.579.2.593 1965 Unknown [id number] 2.16.840.1.112961.3.579.2.593 1965 Unknown [id number] 2.16840.1.306876.3.579.2.593 1965 Unknown [id number] 2.16840.1.938671.3.579.2.593 1965 Unknown [id number] 2.16.840.1.625895.3.579.2.593 1965 Unknown [id number] 2.840.1.026519.3.579.2.59 1963 Unknown [id number] 2.840.1.352514.3.579.2.593 1965 Unknown [id number] 2.840.1.776174.3.579.2.196 1965 Unknown [id number] 2.840.1.500866.3.579.2.1285 1965 Unknown [id number] 2.840.1.622475.3.579.2.1285 1963 Unknown [id number] 2.840.1.612385.3.579.2.1285 1963 Unknown [id number] .840.1.708454.3.579.2.1285 1963 Unknown [id number] 2.840.1.325139.3.579.2.1285 1963 Unknown [id number] .840.1.059395.3.579.2.1285 1963 Unknown [id number] .840.1.280772.3.579.2.1285 1963 Unknown [id number] 2.840.1.159824.3.579.2.1285 1965 Unknown [id number] 2.840.1.572637.3.579.2.1286 1959 Unknown [id number] Private Health Insurance [employer] [id number] Self-pay Self Pay [id number] Unknown [id number] Social History Date Type Detail Facility Start: 04-20-2020 End: 05-22-2020 [facility] Start: 01-01-2023 End: 04-01-2023 Tobacco smoking status NHIS Never smoked tobacco [facility] Start: 04-01-2023 Tobacco use and exposure Smokeless tobacco non-user [facility] Start: 04-01-2023 [facility] intake [facility] (finding[facility] Start: 04-20-2020 End: 05-22-2020 History of Social function [facility] How often to you hav e a drink containing alcohol? Never [facility] Average Number of Drinks [facility] Start: 1965 Sex Assigned At Not on file [facility] Start: 1965 Sex Assigned At Male F [facility] Medical Equipment Procedure Code Equipment Code Equipment Origin al Text Equipment Identifier Dates Implant Bio Tiss Med Bvn At Dlv Dev Bioinductive Impl - Sna - [id number] Start: 02-14-2021 [place] [facility] As cp Dlv - Sna - [id number] Start: 02-14-2021 Clinical Notes 05-16-2021 to 02-14-2023 Note Date & Type Note Facility 02-14-2023 Evaluation note Encounter Date Diagnosis Assessment Notes Jan, Hyperprolactinemia (ICD-10 - E22.1) [facility] Other [id number] Evaluation note* Encounter Date Diagnosis Assessment Notes [...] use, the patient reduces the risk for NV, CVA, HTN, cardiac dysrhythmias and sudden cardiac [...] (ICD-10 - Z12.5) Yearly RENAN and PSA [facility] Other 05-11-2023 NotePROCEDURE: XR SHOULDER RT 2V [...] Electronically authenticated by: LIBBY ARMENTA Date: 2022-07-11 10:26[facility]04-27-2023 Evaluation note* Encounter Date Diagnosis Assessment [...] weight: Diabetes, HTN, Hyperlipidemia, CAD and arthritis. [facility] Other 04-17-2023 Evaluation note* Encounter Date Diagnosis Assessment Notes Treatment Notes Treatment Clinical Notes Jun, Allergic contact dermatitis due to plants, except food (ICD-10 - L23.7) Cool compresses, Nina, Benadryl and Prednisone. Avoid scratching [facility] Other 04-03-2023 Evaluation note* Encounter Date Diagnosis Assessment Notes Treatment Notes Treatment Clinical Notes Jun, Acute bronchitis due to other specified organisms (ICD-10 - J20.8) Instructed to use Robitussin or Mucinex for cough, saline or Flonase NS for congestion, Tylenol for pain and fever. Jun, Primary hypertension (ICD-10 - I10) Avoid decongestants w/ due to elevate BP [facility] Other 03-28-2023 NoteCONSULTATION PROCEDURE DATE: 05/28/2022 IN [...] or sooner if needed. CC: Tevin Torres D.O.[facility]03-16-2023 NoteCONSULTATION CONSULTATION DATE: 05/16/2022 HISTORY: This is [...] coverage. Medications include Lyrica 75 mg b.i.d., Milford 5/325 b.i.d. and Zanaflex 4 mg b.i.d. [...] shoulder pain. PLAN: We will increase his Milford and refill it at 5/325 t.i.d. and Lyrica 75 mg b.i.d. We will preauthorize with his insurance for a left shoulder Kenalog and Marcaine glenohumeral joint injection. Upon authorization, he will be brought back to the clinic, at that time. Patient agrees with this plan.[facility] [id number] NoteCONSULTATION CONSULTATION DATE: 02/28/2022 HISTORY OF PRESENT [...] and ice which are beneficial. Medications include Milford 5/325 b.i.d., Zanaflex 4 mg b.i.d., Lyrica [...] is considering having a consult with the [facility] regarding his shoulder surgery. We will refill and maintain his Milford 5/325 b.i.d. He will Zanaflex and Lyrica at the set dose and frequency. We will continue to see him in three months' time for medication management, and patient is in agreement.[facility] [id number] NoteCONSULTATION CONSULTATION DATE: 11/21/2021 HISTORY OF PRESENT ILLNESS: This is a 56-year-old gentleman returning to the clinic for a follow up of his right sided cervical RFA that was completed in August. The patient had the procedure done prior to leaving for a two month trip to [place]. Today, he reports his [...] 4 mg b.i.d., Lyrica 75 mg b.i.d., Milford 5/325 b.i.d. and ibuprofen 800 mg b.i.d. [...] otherwise indicated. Patient agrees with this plan.[facility] [id number] NoteCONSULTATION PROCEDURE DATE: 11/21/2021 PREOPERATIVE DIAGNOSIS: Right [...] the procedure well with no overt complications.[facility] [id number] NoteCONSULTATION CONSULTATION DATE: 08/16/2021 HISTORY OF PRESENT [...] He is leaving in one week for [place] for a two month time period. Upon patient's return, he will decide if he would like to proceed with the left side RFA. His pain level is 2/10 today and describes it as dull. He has been using Biofreeze and Voltaren gel which seem helpful as well. Current medications include Zanaflex 4 mg b.i.d., Lyrica 75 mg b.i.d. and Milford 5/325 b.i.d. Activities that aggravate his pain [...] Judy for a two month period, his Milford for a 30 day supply will be [...] in the clinic in three months' time. [facility] Signed and Approved by: ADRIANE ROUSSEAU . 08/29/2021 16:23:00[facility]03-16-2022 NoteChief Complaint consultation for foreign body [...] Cap, 75 mg= 1 cap(s), Oral, BID Milford 5/325 Tab, 1 tab(s), Oral, BID Singulair [...] virus vaccine, inactivated - Not Given Patient RefusesMem[facility] HospitalComment on above:Result Comment: Electronically Signed By: JOLLY NGUYEN, Luis Miguel Perez\Date and Time Signed: 05/16/21 17:23 EDTEvaluation note* Diagnosis Onset Date Resolution Status Acute bronchitis due to other specified organisms noneactive [facility] Work Phone: History general Narrative - Reported* [...] History RFA Hospitalization History CHEST PAIN 2010 [facility] Other InstructionsNot on filedocumented in this encounter [facility] Summary Purpose Family History No Family History Records Found Relationship Condition Age at Onset Recorded Date/T susan father Cerebrovascular accident Unknown History of stroke Unknown Advance Directives No Advanced Directives Records Found Advance Directive Response Recorded Date/ Time Advance Directives No March 17, 2017 11:08am Chief Complaint and Reason for Visit Chief Complaint [phone] possibl e strep Reason for Visit Acute bronchitis due to other specified organisms Additional Source Comments (unrecognized sect ion and content) No Status Records FoundNo Status Records FoundNo Status Records FoundNo Status Records FoundNo Status Records FoundNo Status Records FoundNo Status Records FoundNo Status Records Found INFORMATION SOURCE (unrecogn ized section and content) DATE CREATED AUTHOR 08/26/2017 [facility] DATE CREATED AUTHOR AUTHOR'S ORGANIZ ATION 08/26/2017 [facility] DATE CREATED AUTHOR AUTHOR'S ORGANIZ ATION 05/17/2021 [facility] DATE CREATED AUTHOR AUTHOR'S ORGANIZ ATION 07/13/2022 [facility] DATE CREATED AUTHOR AUTHOR'S ORGANIZ ATION 08/20/2023 [facility] DATE CREATED AUTHOR AUTHOR'S ORGANIZ ATION 10/12/2023 [facility] DATE CREATED AUTHOR AUTHOR'S ORGANIZ ATION 10/22/2023 [facility] DATE CREATED AUTHOR AUTHOR'S ORGANIZ ATION 11/12/2023 [facility] REASON FOR VISIT (unrecogniz ed section and content) Reason Comments Med Refill Care Teams (unrecognized sec tion and content) Medical Claims Analyst Relationship Specialty Start Date End Date Tevin Torres DO [address] [place] [address] PCP - General Internal Medicine 05/09/20 Team [...] BE BASED ON THE PRIMARY CLINICAL RECORDS. [facility]. provides no warranty or guarantee of the accuracy or completeness of information in this document.
== END 2023-11-18 11:11 | disposition home or self-care (01) ==
LOC: PM 11:10
PROVIDERS: PCP Internal Medicine; Visit Provider Anesthesiology Pain Medicine
DX: M79.18 Myalgia, other site (principal)
CPT/HCPCS: 20552; J0665; J3301